=== PATIENT | male | born 1940 | race Two or more races ===

== ENCOUNTER → 2019-11-12 | Outpatient (CLI) | payer OTHER ==
[2019-11-12 09:36] LABS: Basophils # (auto) 0 10 ^3/uL (0-0.2); Basophils % (auto) 0.5 % (0.0-2.0); Eosinophils # (auto) 0.1 10 ^3/uL (0-0.8); Eosinophils % (auto) 1.1 % (0.0-7.0); Hematocrit 48.2 % (41.0-53.0); Lymphocytes # (auto) 1.3 10 ^3/uL (0.4-5.4); Lymphocytes % (auto) 14.1 % (10.0-50.0); Mean Corpuscular Hemoglobin 30.2 pg (28.0-32.0); Mean Corpuscular Hgb Conc. 33.2 g/dL (32.0-36.0); Mean Corpuscular Volume 90.9 fL (80.0-100.0); Monocytes # (auto) 0.5 10 ^3/uL (0-1.3); Monocytes % (auto) 5.7 % (0.0-12.0); Neutrophils % (auto) 78.6 % (37.0-80.0); Platelet Count (auto) 176 10^3/uL (140-450); Red Cell Distribution Width 14.4 % (11.8-14.3); White Blood Cell 8.9 10^3/uL (4.4-10.8)
[2019-11-12 09:41] LABS: Urine Bacteria NONE SEEN /hpf (None Seen); Urine Blood Negative /uL (Negative); Urine Specific Gravity 1.016 (1.001-1.035); Urine WBC 1 /hpf (0 - 3)
[2019-11-12 09:58] LABS: Albumin 3.6 g/dL (3.4-5.0)
[2019-11-12 10:03] LABS: BUN/Creatinine Ratio 16.9; Bilirubin, Total 0.5 mg/dL (0.2-1.0); CRP High Sensitivity 0.21 mg/dL (< 0.3); Total Protein 7.3 g/dL (6.4-8.2)
== END | disposition home or self-care (01) ==
LOC: LAB 09:13
PROVIDERS: ATTEND Internal Medicine
DX: Z12.5 Encounter for screening for malignant neoplasm of prostate (principal); E11.9 Type 2 diabetes mellitus without complications; I25.2 Old myocardial infarction; I10 Essential (primary) hypertension; M54.9 Dorsalgia, unspecified
CPT/HCPCS: 36415; 80053; 80061; 81001; 82043; 83036; 84153; 85025; 85652; 86141

== ENCOUNTER 2019-11-18 08:04 | Emergency (ER) | payer OTHER ==
[~2019-11-18] VITALS: Ht 167.6 cm; Wt 79.4 kg
[2019-11-18 08:23] VITALS: BP 139/88
[2019-11-18] MEDS ORDERED: IBUPROFEN 600 MG TAB PO ONE (10:00)
[2019-11-18] MEDS ORDERED: METHOCARBAMOL 500 MG TAB PO ONE (10:00)
== END 2019-11-18 11:04 | disposition home or self-care (01) ==
LOC: ER 08:04
DX: M54.16 Radiculopathy, lumbar region (principal); E11.9 Type 2 diabetes mellitus without complications; I10 Essential (primary) hypertension; Z90.89 Acquired absence of other organs
CPT/HCPCS: 72131

== ENCOUNTER 2019-12-30 10:16 | Emergency (ER) | payer OTHER ==
[~2019-12-30] VITALS: Ht 167.6 cm; Wt 81.6 kg
[2019-12-30 10:55] VITALS: BP 141/85
[2019-12-30] MEDS ORDERED: HYDROcodone-ACET 5/325MG TAB PO ONE (11:15)
[2020-02-05] MEDS ORDERED: INSDRIP SC (10:52)
[2020-02-05] MEDS ORDERED: HYDR-531 PO (10:52)
[2020-02-05] MEDS ORDERED: INSU1INJ19 SC (10:52)
[2020-02-05] MEDS ORDERED: ATOR10TA52 PO (10:52)
[2020-02-05] MEDS ORDERED: TIZA4CAP PO (10:52)
[2020-02-05] MEDS ORDERED: GABA300C10 PO (10:52)
[2020-02-05] MEDS ORDERED: METF-372 PO (10:52)
[2020-02-05] MEDS ORDERED: LOSA-69 PO (10:52)
== END 2019-12-30 11:35 | disposition home or self-care (01) ==
LOC: ER 10:16
DX: M54.16 Radiculopathy, lumbar region (principal); E11.9 Type 2 diabetes mellitus without complications; I10 Essential (primary) hypertension

== ENCOUNTER → 2020-01-01 | Outpatient (CLI) | payer OTHER ==
[2020-01-01 16:30] LABS: Amphetamine Screen, Urine NEGATIVE (NEGATIVE); Barbiturate Scree,Urine NEGATIVE (NEGATIVE); Benzodiazephine Screen, Urine NEGATIVE (NEGATIVE); Cannabinoid Screen, Urine NEGATIVE (NEGATIVE); Cocaine Screen, Urine NEGATIVE (NEGATIVE); Opiate Scree,Urine POSITIVE (NEGATIVE); Phencyclidine Screen, Urine NEGATIVE (NEGATIVE)
== END | disposition home or self-care (01) ==
LOC: LAB 15:52
PROVIDERS: ATTEND Psychiatry & Neurology Neurology
DX: M54.2 Cervicalgia (principal)
CPT/HCPCS: 80307

== ENCOUNTER 2020-02-07 09:07 | Day surgery (SDC) | payer OTHER ==
[2020-02-05 09:52] LABS: Basophils # (auto) 0 10 ^3/uL (0-0.2); Basophils % (auto) 0.7 % (0.0-2.0); Eosinophils # (auto) 0.2 10 ^3/uL (0-0.8); Eosinophils % (auto) 2.4 % (0.0-7.0); Hemoglobin 14.4 g/dL (13.5-17.5); Lymphocytes # (auto) 1.7 10 ^3/uL (0.4-5.4); Lymphocytes % (auto) 24.6 % (10.0-50.0); Mean Corpuscular Hemoglobin 30.1 pg (28.0-32.0); Mean Corpuscular Hgb Conc. 33.4 g/dL (32.0-36.0); Monocytes # (auto) 0.6 10 ^3/uL (0-1.3); Monocytes % (auto) 8.1 % (0.0-12.0); Neutrophils # (auto) 4.5 10 ^3/uL (1.6-8.6); Neutrophils % (auto) 64.2 % (37.0-80.0); Nucleated Red Blood Cells % 0.1 %; Platelet Count (auto) 206 10^3/uL (140-450); Red Blood Cells 4.78 10^6/uL (4.5-5.90); Red Cell Distribution Width 14.6 % (11.8-14.3)
[2020-02-05 10:31] LABS: INR 0.96 (0.9-1.15); Partial Thromboplastin Time 25.6 sec (23.64-32.05)
[~2020-02-07] VITALS: Ht 167.6 cm; Wt 78.0 kg
[~2020-02-07 09:07] MED LIST: ATOR10TA52 PO; GABA300C10 PO; HYDR-531 PO; INSDRIP SC; INSU1INJ19 SC; LOSA-69 PO; METF-372 PO; TIZA4CAP PO
[2020-02-07] MEDS ORDERED: SODIUM CHLORIDE LOCK 10 ML ONE (10:28)
[2020-02-07] MEDS: fentaNYL CITRATE 100 MCG/2 ML VL ONE ×2 (12:13→12:15)
[2020-02-07] MEDS: diphenhdrAMINE HCL 50 MG/1 ML VL ONE ×2 (12:13→12:15)
[2020-02-07] MEDS: MIDAZOLAM HCL 5 MG/ML-1ML VIAL ONE ×3 (12:13→12:19)
[2020-02-07] MEDS ORDERED: fentaNYL CITRATE 100 MCG/2 ML VL ONE (12:20)
== END 2020-02-07 13:28 | disposition home or self-care (01) ==
LOC: GI 09:07
PROVIDERS: ATTEND Internal Medicine Gastroenterology
DX: R63.4 Abnormal weight loss (principal); D12.0 Benign neoplasm of cecum; K57.30 Diverticulosis of large intestine without perforation or abscess without bleeding; K63.89 Other specified diseases of intestine; K64.8 Other hemorrhoids; Z98.890 Other specified postprocedural states; Z79.899 Other long term (current) drug therapy; Z11.59 Encounter for screening for other viral diseases
CPT/HCPCS: 36415; 45385; 82962; 85025; 85610; 85730; 88305; J1200; J2250; J3010; J7030; U0003; 99152

== ENCOUNTER → 2020-02-12 | Outpatient (CLI) | payer OTHER ==
[2020-02-12 13:38] LABS: Basophils # (auto) 0 10 ^3/uL (0-0.2); Basophils % (auto) 0.6 % (0.0-2.0); Eosinophils # (auto) 0.1 10 ^3/uL (0-0.8); Eosinophils % (auto) 1.9 % (0.0-7.0); Hematocrit 41.7 % (41.0-53.0); Hemoglobin 13.8 g/dL (13.5-17.5); Lymphocytes # (auto) 1.8 10 ^3/uL (0.4-5.4); Lymphocytes % (auto) 23.5 % (10.0-50.0); Mean Corpuscular Hemoglobin 29.8 pg (28.0-32.0); Mean Corpuscular Hgb Conc. 33.2 g/dL (32.0-36.0); Mean Corpuscular Volume 89.7 fL (80.0-100.0); Monocytes # (auto) 0.4 10 ^3/uL (0-1.3); Monocytes % (auto) 5.9 % (0.0-12.0); Neutrophils # (auto) 5.2 10 ^3/uL (1.6-8.6); Neutrophils % (auto) 68.1 % (37.0-80.0); Nucleated Red Blood Cells % 0.1 %; Platelet Count (auto) 251 10^3/uL (140-450); Red Blood Cells 4.65 10^6/uL (4.5-5.90); Red Cell Distribution Width 14.5 % (11.8-14.3); White Blood Cell 7.6 10^3/uL (4.4-10.8)
[2020-02-12 13:51] LABS: INR 1.01 (0.9-1.15); Partial Thromboplastin Time 25.7 sec (23.64-32.05)
[2020-02-12 13:56] LABS: Albumin 3.4 g/dL (3.4-5.0); Calcium 8.7 mg/dL (8.5-10.1); Potassium 4.5 mmol/L (3.5-5.1)
[2020-02-12 14:01] LABS: Bilirubin, Total 0.4 mg/dL (0.2-1.0)
== END | disposition home or self-care (01) ==
LOC: LAB 13:13
DX: M47.816 Spondylosis without myelopathy or radiculopathy, lumbar region (principal); M51.26 Other intervertebral disc displacement, lumbar region; M43.16 Spondylolisthesis, lumbar region; M54.16 Radiculopathy, lumbar region; K64.8 Other hemorrhoids; I25.2 Old myocardial infarction; I10 Essential (primary) hypertension; Z01.818 Encounter for other preprocedural examination
CPT/HCPCS: 36415; 80053; 85025; 85610; 85730

== ENCOUNTER → 2020-07-15 | Outpatient (CLI) | payer OTHER ==
[2020-07-15 11:20] LABS: Albumin 3.5 g/dL (3.4-5.0); Calcium 8.9 mg/dL (8.5-10.1); Potassium 4.6 mmol/L (3.5-5.1)
[2020-07-15 11:26] LABS: BUN/Creatinine Ratio 22.1; Bilirubin, Total 0.4 mg/dL (0.2-1.0); Total Protein 6.8 g/dL (6.4-8.2)
== END | disposition home or self-care (01) ==
LOC: LAB 10:17
PROVIDERS: ATTEND Internal Medicine
DX: E11.9 Type 2 diabetes mellitus without complications (principal)
CPT/HCPCS: 36415; 80053; 83036

== ENCOUNTER → 2020-11-03 | Outpatient (CLI) | payer OTHER | END | disposition home or self-care (01) | LOC: XY 11:10 | PROVIDERS: ATTEND Internal Medicine | DX: I73.9 Peripheral vascular disease, unspecified (principal) | CPT/HCPCS: 93925 ==

== ENCOUNTER 2020-12-20 15:59 | Emergency (ER) | payer OTHER ==
[~2020-12-20] VITALS: Ht 167.6 cm; Wt 81.2 kg
[2020-12-20 16:20] VITALS: BP 117/93
== END 2020-12-20 19:00 | disposition left against medical advice (07) ==
LOC: ER 15:59
DX: K08.89 Other specified disorders of teeth and supporting structures (principal); Z53.21 Procedure and treatment not carried out due to patient leaving prior to being seen by health care provider

== ENCOUNTER 2020-12-25 02:50 | Inpatient (IN) | payer OTHER ==
[2020-12-25] VITALS (8 sets, daily range): BP systolic 129–158; BP diastolic 82–86
[~2020-12-25] VITALS: Ht 167.6 cm; Wt 86.0 kg
[2020-12-25 03:38] LABS: Basophils # (auto) 0.1 10 ^3/uL (0-0.2); Basophils % (auto) 1.4 % (0.0-2.0); Eosinophils # (auto) 0.2 10 ^3/uL (0-0.8); Eosinophils % (auto) 1.9 % (0.0-7.0); Hemoglobin 16.6 g/dL (13.5-17.5); Lymphocytes # (auto) 2.7 10 ^3/uL (0.4-5.4); Lymphocytes % (auto) 29.7 % (10.0-50.0); Mean Corpuscular Hemoglobin 30.8 pg (28.0-32.0); Mean Corpuscular Hgb Conc. 33.8 g/dL (32.0-36.0); Mean Corpuscular Volume 91.1 fL (80.0-100.0); Monocytes # (auto) 0.5 10 ^3/uL (0-1.3); Monocytes % (auto) 5.4 % (0.0-12.0); Neutrophils # (auto) 5.7 10 ^3/uL (1.6-8.6); Neutrophils % (auto) 61.6 % (37.0-80.0); Nucleated Red Blood Cells % 0.2 %; Platelet Count (auto) 183 10^3/uL (140-450); Red Blood Cells 5.38 10^6/uL (4.5-5.90); Red Cell Distribution Width 14.4 % (11.8-14.3); White Blood Cell 9.2 10^3/uL (4.4-10.8)
[2020-12-25 03:48] LABS: Albumin 3.6 g/dL (3.4-5.0); Calcium 8.7 mg/dL (8.5-10.1); Magnesium 2.1 mg/dL (1.6-2.6); Potassium 4.3 mmol/L (3.5-5.1)
[2020-12-25 03:52] LABS: BUN/Creatinine Ratio 14.7; Bilirubin, Total 0.4 mg/dL (0.2-1.0)
[2020-12-25] MEDS ORDERED: ASPirin 325 MG TAB PO ONE (04:15)
[2020-12-25] MEDS ORDERED: ENOXAPARIN SOD 100 MG/1 ML SYRINGE SC ONE (04:15)
[2020-12-25 04:31] LABS: INR 0.98 (0.9-1.15)
[2020-12-25] MEDS ORDERED: ENOXAPARIN SOD 80 MG/0.8ML SYRINGE SC ONE (04:45)
[2020-12-25 05:47] LABS: Urine Bacteria FEW /hpf (None Seen); Urine Blood Negative /uL (Negative); Urine Hyaline Cast FEW /lpf (0 - 2); Urine Specific Gravity 1.013 (1.001-1.035); Urine WBC 40 /hpf (0 - 3)
[2020-12-25] MEDS ORDERED: MORPHINE SULF INJ 2 MG/ML SYRINGE 1ML IV PRN ×2 (07:00)
[2020-12-25] MEDS ORDERED: hydrALAZINE HCL 20 MG/ML VL IV PRN (07:00)
[2020-12-25] MEDS ORDERED: DOCUSATE SOD 100 MG CAP PO PRN (07:00)
[2020-12-25] MEDS ORDERED: ONDANSETRON HCL 4 MG/2 ML VIAL IV PRN (07:00)
[2020-12-25] MEDS ORDERED: HYDROcodone-ACET 5/325MG TAB PO PRN (07:00)
[2020-12-25] MEDS ORDERED: DEXTROSE (50%) 50ML SYRG IV PRN (07:00)
[2020-12-25] MEDS: ACCU-CHEK COMFORT CURVE STRIP VI SCH ×4 (07:00→21:32)
[2020-12-25] MEDS ORDERED: ACETAMINOPHEN 325 MG TAB PO PRN (07:00)
[2020-12-25] MEDS ORDERED: NITROGLYCERIN 0.4 MG SL TAB SL PRN (07:00)
[2020-12-25] MEDS: InsuLIN REG 1unit/0.01ml Soln (100units/ml) SC SCH ×3 (08:43→17:20)
[2020-12-25 09:17] LABS: Albumin 3.3 g/dL (3.4-5.0); Calcium 8.6 mg/dL (8.5-10.1); Potassium 4.2 mmol/L (3.5-5.1)
[2020-12-25 09:20] LABS: BUN/Creatinine Ratio 15.3; Bilirubin, Total 0.3 mg/dL (0.2-1.0); Total Protein 6.5 g/dL (6.4-8.2)
[2020-12-25 09:21] LABS: Cholesterol 213 mg/dL (< 200); HDL Cholesterol 56 mg/dL (40-59); LDL Cholesterol 139 mg/dL (< 100); Triglycerides 111 mg/dL (< 150)
[2020-12-25] MEDS: FAMOTIDINE 20 MG TAB PO SCH (10:00)
[2020-12-25] MEDS: MULTIPLE VITAMIN TAB PO SCH (10:00)
[2020-12-25] MEDS: ASCORBIC ACID 500 MG TAB PO SCH ×2 (10:00→21:01)
[2020-12-25] MEDS: ZINC SULFATE 220mg CAP or TAB PO SCH (10:00)
[2020-12-25] MEDS: HEPARIN SODIUM (PORCINE) 5000 UNITS/ML 1ML VIAL SC SCH ×2 (10:00→21:16)
[2020-12-25] MEDS ORDERED: ASPirin 81 mg TAB PO SCH (10:00)
[2020-12-25 10:37] LABS: INR 0.98 (0.9-1.15); Partial Thromboplastin Time 28.2 sec (23.0-31.2)
[2020-12-25] MEDS ORDERED: ASPI1CHW15 PO (13:29)
[2020-12-25] MEDS ORDERED: ATOR20TA50 PO (13:29)
[2020-12-25] MEDS ORDERED: HEPARIN SODIUM (PORCINE) 5000 UNITS/ML 1ML VIAL ONE (13:45)
[2020-12-25] MEDS ORDERED: ANGIOMAX 250 MG VIAL IV ONE (13:45)
[2020-12-25] MEDS ORDERED: fentaNYL CITRATE 100 MCG/2 ML VL ONE (13:45)
[2020-12-25] MEDS ORDERED: VERAPAMIL 2.5MG/ML INJ 2ML VIAL IV ONE (13:45)
[2020-12-25] MEDS ORDERED: MIDAZOLAM HCL 1MG/1ML-2 ML VIAL ONE (13:46)
[2020-12-25] MEDS ORDERED: SODIUM CHL 0.9% 50 ML ONE (13:46)
[2020-12-25] MEDS ORDERED: LIDOCAINE 2%HCL (LOCAL ANESTH.) INJ 20ML MDV ONE (13:46)
[2020-12-25] MEDS ORDERED: IOHEXOL 350 MG/ML 100ML IJ ONE ×2 (13:46→14:41)
[2020-12-25] MEDS: SODIUM CHLOR 0.9% PF (SALINE LOCK) 10ML VIAL/SYR IV SCH ×2 (14:00→21:01)
[2020-12-25] MEDS ORDERED: ASPirin 325 MG TAB ONE (15:04)
[2020-12-25] MEDS ORDERED: TICAGRELOR 90 MG TAB ONE (15:04)
[2020-12-25] MEDS: TICAGRELOR 90 MG TAB PO SCH (21:01)
[2020-12-25] MEDS ORDERED: InsuLIN REG 1unit/0.01ml Soln (100units/ml) SC SCH (22:00)
[2020-12-25] MEDS ORDERED: ATORVASTATIN 20 MG TAB PO SCH (22:00)
[2020-12-26 04:55] VITALS: BP 124/77
[2020-12-26] MEDS: SODIUM CHLOR 0.9% PF (SALINE LOCK) 10ML VIAL/SYR IV SCH ×2 (06:51→14:00)
[2020-12-26] MEDS: ACCU-CHEK COMFORT CURVE STRIP VI SCH ×2 (06:51→11:30)
[2020-12-26] MEDS: InsuLIN REG 1unit/0.01ml Soln (100units/ml) SC SCH ×2 (06:52→11:33)
[2020-12-26 08:09] LABS: Basophils # (auto) 0 10 ^3/uL (0-0.2); Basophils % (auto) 0.7 % (0.0-2.0); Eosinophils # (auto) 0.2 10 ^3/uL (0-0.8); Eosinophils % (auto) 2.4 % (0.0-7.0); Hematocrit 49.9 % (41.0-53.0); Hemoglobin 17.2 g/dL (13.5-17.5); Lymphocytes # (auto) 1.6 10 ^3/uL (0.4-5.4); Lymphocytes % (auto) 22.8 % (10.0-50.0); Mean Corpuscular Hemoglobin 31.3 pg (28.0-32.0); Mean Corpuscular Hgb Conc. 34.5 g/dL (32.0-36.0); Mean Corpuscular Volume 90.9 fL (80.0-100.0); Monocytes # (auto) 0.6 10 ^3/uL (0-1.3); Neutrophils # (auto) 4.7 10 ^3/uL (1.6-8.6); Neutrophils % (auto) 65.1 % (37.0-80.0); Nucleated Red Blood Cells % 0.2 %; Platelet Count (auto) 171 10^3/uL (140-450); Red Blood Cells 5.49 10^6/uL (4.5-5.90); Red Cell Distribution Width 14.6 % (11.8-14.3); White Blood Cell 7.1 10^3/uL (4.4-10.8)
[2020-12-26 08:37] LABS: Potassium 4.4 mmol/L (3.5-5.1)
[2020-12-26 08:55] VITALS: BP 127/77
[2020-12-26 09:03] LABS: Albumin 3.4 g/dL (3.4-5.0); BUN/Creatinine Ratio 19.3; Bilirubin, Total 0.6 mg/dL (0.2-1.0); Calcium 8.8 mg/dL (8.5-10.1); Total Protein 6.7 g/dL (6.4-8.2)
[2020-12-26] MEDS ORDERED: ASPirin 81 mg TAB PO SCH (10:00)
[2020-12-26] MEDS: TICAGRELOR 90 MG TAB PO SCH (10:13)
[2020-12-26] MEDS: ZINC SULFATE 220mg CAP or TAB PO SCH (10:13)
[2020-12-26] MEDS: ASCORBIC ACID 500 MG TAB PO SCH (10:13)
[2020-12-26] MEDS: FAMOTIDINE 20 MG TAB PO SCH (10:14)
[2020-12-26] MEDS: MULTIPLE VITAMIN TAB PO SCH (10:14)
[2020-12-26] MEDS: HEPARIN SODIUM (PORCINE) 5000 UNITS/ML 1ML VIAL SC SCH (10:15)
[2020-12-26 12:55] VITALS: BP 141/79
[2020-12-26] MEDS ORDERED: CARVEDILOL 3.125 MG TAB PO ONE (14:15)
[2020-12-26] MEDS ORDERED: CARVEDILOL 3.125 MG TAB PO SCH (22:00)
== END 2020-12-26 15:30 | disposition home or self-care (01) | DRG 249 ==
LOC: ER 02:50 → TELE 06:50 → TELE-WESTW 16:30
PROVIDERS: ADMIT Nurse Practitioner Family; ATTEND Internal Medicine Pulmonary Disease
PROC: 4A023N7 Measurement of Cardiac Sampling and Pressure, Left Heart, Percutaneous Approach (ICD-10-PCS; principal; 2020-12-25)
PROC: 02703DZ Dilation of Coronary Artery, One Artery with Intraluminal Device, Percutaneous Approach (ICD-10-PCS; 2020-12-25)
PROC: 4A033BC Measurement of Arterial Pressure, Coronary, Percutaneous Approach (ICD-10-PCS; 2020-12-25)
PROC: B2111ZZ Fluoroscopy of Multiple Coronary Arteries using Low Osmolar Contrast (ICD-10-PCS; 2020-12-25)
PROC: B2151ZZ Fluoroscopy of Left Heart using Low Osmolar Contrast (ICD-10-PCS; 2020-12-25)
DX: I24.9 Acute ischemic heart disease, unspecified (principal); E11.51 Type 2 diabetes mellitus with diabetic peripheral angiopathy without gangrene; E11.65 Type 2 diabetes mellitus with hyperglycemia; E66.3 Overweight; Z20.822 Contact with and (suspected) exposure to COVID-19; I10 Essential (primary) hypertension; F17.210 Nicotine dependence, cigarettes, uncomplicated; E78.5 Hyperlipidemia, unspecified; I25.2 Old myocardial infarction; Z79.4 Long term (current) use of insulin; Z79.82 Long term (current) use of aspirin; I25.110 Atherosclerotic heart disease of native coronary artery with unstable angina pectoris; Z68.29 Body mass index [BMI] 29.0-29.9, adult
CPT/HCPCS: 36415; 71045; 80053; 80061; 81001; 82043; 82306; 82962; 83036; 83735; 83880; 84484; 85025; 85610; 85730; 86850; 86900; 86901; 87426; 92928; 93005; 93306; 93458; 96372; 99152; 99153; C1887; G0378; J1815; J2250

== ENCOUNTER → 2021-02-17 | Outpatient (CLI) | payer OTHER ==
[~2021-02-17] MED LIST changes: +ASPI1CHW15 PO; -ATOR10TA52 PO; +ATOR20TA50 PO; -GABA300C10 PO; -HYDR-531 PO; -TIZA4CAP PO
== END | disposition home or self-care (01) ==
LOC: LAB 10:45
PROVIDERS: ATTEND Physician Assistant
DX: C44.622 Squamous cell carcinoma of skin of right upper limb, including shoulder (principal)

== ENCOUNTER → 2021-10-07 | Outpatient (CLI) | payer OTHER ==
[~2021-10-07] MED LIST changes: +BUPIVACAINE HCL 0.25% P/F 10 ML VIAL ONE; +IOHEXOL 300 MG/ML 100ML BOTTLE IJ ONE; +LIDOCAINE 2%HCL (LOCAL ANESTH.) INJ 20ML MDV ONE; +methylPREDNISolone ACETATE 80 MG/ML VL ONE
== END | disposition home or self-care (01) ==
LOC: XY 12:34
PROVIDERS: ATTEND Orthopaedic Surgery Adult Reconstructive Orthopaedic Surgery
DX: M25.552 Pain in left hip (principal); F17.200 Nicotine dependence, unspecified, uncomplicated; Z82.0 Family history of epilepsy and other diseases of the nervous system
CPT/HCPCS: 20610; 73502; J1040; J3490; Q9967; 76000

== ENCOUNTER 2021-12-26 11:21 | Emergency (ER) | payer OTHER ==
[~2021-12-26] VITALS: Ht 167.6 cm; Wt 73.5 kg
[~2021-12-26 11:21] MED LIST changes: -BUPIVACAINE HCL 0.25% P/F 10 ML VIAL ONE; -IOHEXOL 300 MG/ML 100ML BOTTLE IJ ONE; -LIDOCAINE 2%HCL (LOCAL ANESTH.) INJ 20ML MDV ONE; -methylPREDNISolone ACETATE 80 MG/ML VL ONE
[2021-12-26] MEDS ORDERED: ONDANSETRON ODT 4 MG TAB PO ONE (12:15)
[2021-12-26] MEDS ORDERED: ONDA-188 PO (13:45)
[2021-12-26 15:24] VITALS: BP 120/77
== END 2021-12-26 14:38 | disposition home or self-care (01) ==
LOC: ER 11:21
DX: R11.2 Nausea with vomiting, unspecified (principal); E11.9 Type 2 diabetes mellitus without complications; I10 Essential (primary) hypertension; I25.2 Old myocardial infarction; F17.210 Nicotine dependence, cigarettes, uncomplicated; Z90.89 Acquired absence of other organs; Z98.61 Coronary angioplasty status; Z79.4 Long term (current) use of insulin
CPT/HCPCS: 74176; 93005; 99284; Q0162

== ENCOUNTER → 2022-04-29 | Outpatient (CLI) | payer OTHER ==
[~2022-04-29] MED LIST changes: +ONDA-188 PO
== END | disposition home or self-care (01) ==
LOC: LAB 15:13
PROVIDERS: ATTEND Family Medicine
DX: L82.1 Other seborrheic keratosis (principal)
CPT/HCPCS: 88302

== ENCOUNTER → 2022-06-30 | Outpatient (CLI) | payer OTHER ==
[2022-06-30 13:49] LABS: Basophils # (auto) 0.1 10 ^3/uL (0-0.2); Basophils % (auto) 0.8 % (0.0-2.0); Eosinophils # (auto) 0.1 10 ^3/uL (0-0.8); Hemoglobin 16.6 g/dL (13.5-17.5); Lymphocytes # (auto) 1.6 10 ^3/uL (0.4-5.4); Mean Corpuscular Hemoglobin 30.5 pg (28.0-32.0); Mean Corpuscular Hgb Conc. 33.2 g/dL (32.0-36.0); Monocytes # (auto) 0.4 10 ^3/uL (0-1.3); Monocytes % (auto) 6.1 % (0.0-12.0); Neutrophils # (auto) 4.5 10 ^3/uL (1.6-8.6); Neutrophils % (auto) 68.1 % (37.0-80.0); Nucleated Red Blood Cells % 0.2 %; Red Blood Cells 5.43 10^6/uL (4.5-5.90); Red Cell Distribution Width 14.1 % (11.8-14.3); White Blood Cell 6.6 10^3/uL (4.4-10.8)
[2022-06-30 13:55] LABS: Urine Bacteria NONE SEEN /hpf (None Seen); Urine Blood Negative /uL (Negative); Urine Specific Gravity 1.012 (1.001-1.035); Urine WBC 1 /hpf (0 - 3)
[2022-06-30 14:44] LABS: Albumin 3.8 g/dL (3.4-5.0); Potassium 4.6 mmol/L (3.5-5.1)
[2022-06-30 16:06] LABS: BUN/Creatinine Ratio 18.5; Calcium 8.7 mg/dL (8.5-10.1)
[2022-06-30 16:25] LABS: Bilirubin, Total 0.6 mg/dL (0.2-1.0)
== END | disposition home or self-care (01) ==
LOC: LAB 13:30
PROVIDERS: ATTEND Internal Medicine
DX: E11.9 Type 2 diabetes mellitus without complications (principal); J44.9 Chronic obstructive pulmonary disease, unspecified
CPT/HCPCS: 36415; 80053; 80061; 81001; 82043; 83036; 85025

== ENCOUNTER → 2022-08-11 | Outpatient (CLI) | payer OTHER ==
[2022-08-11 14:29] LABS: Basophils # (auto) 0.1 10 ^3/uL (0-0.2); Basophils % (auto) 0.6 % (0.0-2.0); Eosinophils # (auto) 0.1 10 ^3/uL (0-0.8); Eosinophils % (auto) 0.6 % (0.0-7.0); Hematocrit 49.7 % (41.0-53.0); Hemoglobin 16.7 g/dL (13.5-17.5); Lymphocytes # (auto) 2.2 10 ^3/uL (0.4-5.4); Lymphocytes % (auto) 25.2 % (10.0-50.0); Mean Corpuscular Hemoglobin 30.9 pg (28.0-32.0); Mean Corpuscular Hgb Conc. 33.6 g/dL (32.0-36.0); Monocytes # (auto) 0.5 10 ^3/uL (0-1.3); Monocytes % (auto) 5.7 % (0.0-12.0); Neutrophils # (auto) 5.9 10 ^3/uL (1.6-8.6); Neutrophils % (auto) 67.9 % (37.0-80.0); Nucleated Red Blood Cells % 0.1 %; Red Cell Distribution Width 14.1 % (11.8-14.3); White Blood Cell 8.8 10^3/uL (4.4-10.8)
== END | disposition home or self-care (01) ==
LOC: LAB 14:12
PROVIDERS: ATTEND Internal Medicine
DX: M54.9 Dorsalgia, unspecified (principal)
CPT/HCPCS: 36415; 85025; 85652

== ENCOUNTER 2022-08-18 09:08 | Emergency (ER) | payer OTHER ==
[~2022-08-18] VITALS: Ht 167.6 cm; Wt 78.4 kg
[2022-08-18 10:58] VITALS: BP 145/86
== END 2022-08-18 13:34 | disposition home or self-care (01) ==
LOC: ER 09:12
DX: M48.061 Spinal stenosis, lumbar region without neurogenic claudication (principal); M54.16 Radiculopathy, lumbar region; G89.29 Other chronic pain; M54.50 Low back pain, unspecified; I10 Essential (primary) hypertension; E11.9 Type 2 diabetes mellitus without complications; I25.2 Old myocardial infarction; F17.210 Nicotine dependence, cigarettes, uncomplicated; Z90.89 Acquired absence of other organs; Z79.4 Long term (current) use of insulin; Z79.82 Long term (current) use of aspirin; Z79.899 Other long term (current) drug therapy
CPT/HCPCS: 72100; 72148

== ENCOUNTER 2022-10-27 09:00 | Inpatient (IN) | payer OTHER ==
[2022-10-25 10:19] LABS: Urine WBC None Seen /hpf (0 - 3)
[2022-10-25 10:24] LABS: Basophils # (auto) 0 10 ^3/uL (0-0.2); Basophils % (auto) 0.4 % (0.0-2.0); Eosinophils # (auto) 0 10 ^3/uL (0-0.8); Eosinophils % (auto) 0.4 % (0.0-7.0); Hematocrit 41.9 % (41.0-53.0); Hemoglobin 14.2 g/dL (13.5-17.5); Lymphocytes # (auto) 1.2 10 ^3/uL (0.4-5.4); Lymphocytes % (auto) 13.2 % (10.0-50.0); Mean Corpuscular Hemoglobin 30.8 pg (28.0-32.0); Mean Corpuscular Volume 90.6 fL (80.0-100.0); Monocytes # (auto) 0.6 10 ^3/uL (0-1.3); Monocytes % (auto) 6.1 % (0.0-12.0); Neutrophils # (auto) 7.5 10 ^3/uL (1.6-8.6); Neutrophils % (auto) 79.9 % (37.0-80.0); Red Blood Cells 4.62 10^6/uL (4.5-5.90); Red Cell Distribution Width 15.2 % (11.8-14.3); White Blood Cell 9.4 10^3/uL (4.4-10.8)
[2022-10-25 10:39] LABS: Urine Bacteria NONE SEEN /hpf (None Seen); Urine Blood Negative /uL (Negative); Urine Hyaline Cast FEW /lpf (0 - 2); Urine Specific Gravity 1.016 (1.001-1.035)
[2022-10-25 10:40] LABS: INR 0.98 (0.9-1.15); Partial Thromboplastin Time 26.3 sec (24.6-33.4)
[2022-10-25 11:20] LABS: Potassium 4.4 mmol/L (3.5-5.1)
[2022-10-25 11:28] LABS: Albumin 3.7 g/dL (3.4-5.0); BUN/Creatinine Ratio 21.4; Bilirubin, Total 0.6 mg/dL (0.2-1.0); Calcium 8.9 mg/dL (8.5-10.1); Total Protein 7.5 g/dL (6.4-8.2)
[~2022-10-27] VITALS: Ht 167.6 cm; Wt 70.1 kg
[~2022-10-27 09:00] MED LIST changes: +CARI-277 PO; +CARV3.1240 PO; +CLOP75TA70 PO; +EMPA1TAB PO; +LOSA-39 PO; -LOSA-69 PO; +MELO1TAB73 PO; +OXYC325T14 PO; +PRED20TA2 PO
[2022-10-27] MEDS ORDERED: ceFAZolin 1GM/50ML 100 ML IV ONE (12:28)
[2022-10-27] MEDS ORDERED: fentaNYL CITRATE 100 MCG/2 ML VL ONE ×2 (14:30→14:31)
[2022-10-27] MEDS ORDERED: GLYCOPYRROLATE 0.2 MG/ML 1ML VIAL ONE (14:30)
[2022-10-27] MEDS ORDERED: ePHEDrine SULFATE 50 MG/ML AMP ONE (14:30)
[2022-10-27] MEDS ORDERED: HYDROmorphone HCL 2 MG/ML VL/or syr ONE (14:30)
[2022-10-27] MEDS ORDERED: PROPOFOL 10 MG/ML 20 ML IV ONE (14:30)
[2022-10-27] MEDS ORDERED: MIDAZOLAM HCL 2MG/2ML 2ml VIAL (1mg/ml) ONE (14:30)
[2022-10-27] MEDS ORDERED: ONDANSETRON HCL 4 MG/2 ML VIAL ONE (14:30)
[2022-10-27] MEDS ORDERED: ROCURONIUM 10MG/ML 10ML VIAL IV ONE (14:43)
[2022-10-27] MEDS ORDERED: HYDROCORTISONE SOD SUCC 100 MG/2ML INJ VIAL ONE (14:48)
[2022-10-27] MEDS ORDERED: MORPHINE SULFATE INJ 2 MG/ml SYRG IV PRN ×2 (15:45)
[2022-10-27] MEDS: D5W/SOD CHLO 0.9% 1,000 ML IV SCH (15:45)
[2022-10-27] MEDS ORDERED: DOCUSATE SOD 100 MG CAP PO PRN (15:45)
[2022-10-27] MEDS ORDERED: MILK OF MAGNESIA 30ML SUSP PO PRN (15:45)
[2022-10-27] MEDS ORDERED: DexAMETHasone SOD PHOS 10MG/1ML VIAL INJ IV ONE (15:45)
[2022-10-27] MEDS ORDERED: NITROGLYCERIN 0.4 MG SL TAB SL PRN (15:45)
[2022-10-27] MEDS: ceFAZolin 1GM/50ML 50 ML IV SCH ×2 (15:45→22:31)
[2022-10-27] MEDS ORDERED: SUGAMMADEX 200mg/2ml Vial (100MG/ML) IV ONE (17:04)
[2022-10-27] MEDS ORDERED: MINERAL OIL TOPICAL 10ml TOP ONE (18:02)
[2022-10-27] MEDS ORDERED: HYDROmorphone HCL 2 MG/ML VL/or syr IV PRN (19:15)
[2022-10-27] MEDS ORDERED: ONDANSETRON HCL 4 MG/2 ML VIAL IV PRN (19:15)
[2022-10-27 20:23] VITALS: BP 108/80
[2022-10-27 22:00] VITALS: BP 104/80
[2022-10-27] MEDS: HYDROcodone-ACET 10/325MG TAB PO PRN (22:32)
[2022-10-27] MEDS: DOCUSATE SOD 100 MG CAP PO SCH (22:32)
[2022-10-27] MEDS: CYCLOBENZAPRINE HCL 10 MG TAB PO SCH (22:32)
[2022-10-27 23:46] VITALS: BP 108/80
[2022-10-28] MEDS: D5W/SOD CHLO 0.9% 1,000 ML IV SCH ×2 (01:45→11:56)
[2022-10-28] MEDS: CYCLOBENZAPRINE HCL 10 MG TAB PO SCH ×3 (04:52→21:15)
[2022-10-28 05:00] VITALS: BP 144/80
[2022-10-28 08:49] VITALS: BP 83/59
[2022-10-28] MEDS: DOCUSATE SOD 100 MG CAP PO SCH ×2 (09:40→21:15)
[2022-10-28 13:00] VITALS: BP 115/73
[2022-10-28] MEDS ORDERED: DEXTROSE (50%) 50ML SYRG IV PRN (15:15)
[2022-10-28 17:00] VITALS: BP 114/65
[2022-10-28] MEDS: ACCU-CHEK COMFORT CURVE STRIP VI SCH ×2 (17:31→21:16)
[2022-10-28] MEDS: SODIUM CHLORIDE 0.9% 1,000 ML IV SCH (17:31)
[2022-10-28] MEDS: InsuLIN REG 1unit/0.01ml Soln (100units/ml) SC SCH ×2 (17:32→21:26)
[2022-10-28] MEDS: ATORVASTATIN 20 MG TAB PO SCH (21:15)
[2022-10-28 22:00] VITALS: BP 141/78
[2022-10-29] MEDS: HYDROcodone-ACET 10/325MG TAB PO PRN ×2 (01:31→17:13)
[2022-10-29 05:00] VITALS: BP 109/61
[2022-10-29] MEDS: CYCLOBENZAPRINE HCL 10 MG TAB PO SCH ×3 (05:35→21:18)
[2022-10-29] MEDS: SODIUM CHLORIDE 0.9% 1,000 ML IV SCH ×2 (05:36→17:34)
[2022-10-29] MEDS: InsuLIN REG 1unit/0.01ml Soln (100units/ml) SC SCH ×3 (05:41→17:13)
[2022-10-29] MEDS: ACCU-CHEK COMFORT CURVE STRIP VI SCH ×4 (05:41→21:23)
[2022-10-29 07:06] LABS: BUN/Creatinine Ratio 31.1; Calcium 8.3 mg/dL (8.5-10.1)
[2022-10-29 08:05] LABS: Basophils # (auto) 0 10 ^3/uL (0-0.2); Basophils % (auto) 0.6 % (0.0-2.0); Eosinophils # (auto) 0 10 ^3/uL (0-0.8); Eosinophils % (auto) 0.2 % (0.0-7.0); Hematocrit 29.1 % (41.0-53.0); Hemoglobin 9.9 g/dL (13.5-17.5); Lymphocytes # (auto) 2.3 10 ^3/uL (0.4-5.4); Lymphocytes % (auto) 27.2 % (10.0-50.0); Mean Corpuscular Hgb Conc. 34.1 g/dL (32.0-36.0); Mean Corpuscular Volume 90.7 fL (80.0-100.0); Monocytes # (auto) 0.6 10 ^3/uL (0-1.3); Monocytes % (auto) 7.6 % (0.0-12.0); Neutrophils # (auto) 5.4 10 ^3/uL (1.6-8.6); Neutrophils % (auto) 64.4 % (37.0-80.0); Nucleated Red Blood Cells % 0.1 %; Red Blood Cells 3.21 10^6/uL (4.5-5.90); Red Cell Distribution Width 14.7 % (11.8-14.3); White Blood Cell 8.4 10^3/uL (4.4-10.8)
[2022-10-29 08:30] VITALS: BP 115/59
[2022-10-29] MEDS: DOCUSATE SOD 100 MG CAP PO SCH ×2 (08:40→21:19)
[2022-10-29 12:30] VITALS: BP 150/82
[2022-10-29 16:45] VITALS: BP 151/89
[2022-10-29] MEDS: ATORVASTATIN 20 MG TAB PO SCH (21:18)
[2022-10-29 22:05] VITALS: BP 134/80
[2022-10-30] MEDS: InsuLIN REG 1unit/0.01ml Soln (100units/ml) SC SCH ×5 (00:01→22:34)
[2022-10-30] MEDS: SODIUM CHLORIDE 0.9% 1,000 ML IV SCH ×2 (01:27→20:35)
[2022-10-30 05:00] VITALS: BP 148/93
[2022-10-30] MEDS: CYCLOBENZAPRINE HCL 10 MG TAB PO SCH ×3 (05:24→22:16)
[2022-10-30] MEDS: ACCU-CHEK COMFORT CURVE STRIP VI SCH ×4 (05:37→22:17)
[2022-10-30 08:00] VITALS: BP 136/83
[2022-10-30 09:00] VITALS: BP 136/83
[2022-10-30] MEDS: HYDROcodone-ACET 10/325MG TAB PO PRN (11:06)
[2022-10-30] MEDS: DOCUSATE SOD 100 MG CAP PO SCH ×2 (11:06→22:16)
[2022-10-30 22:00] VITALS: BP 129/71
[2022-10-30] MEDS: ATORVASTATIN 20 MG TAB PO SCH (22:16)
[2022-10-31 05:15] VITALS: BP 139/71
[2022-10-31] MEDS: CYCLOBENZAPRINE HCL 10 MG TAB PO SCH ×3 (05:59→21:58)
[2022-10-31] MEDS: HYDROcodone-ACET 10/325MG TAB PO PRN ×2 (06:10→21:58)
[2022-10-31] MEDS: ACCU-CHEK COMFORT CURVE STRIP VI SCH ×4 (06:14→22:00)
[2022-10-31] MEDS: InsuLIN REG 1unit/0.01ml Soln (100units/ml) SC SCH ×4 (06:14→21:59)
[2022-10-31] MEDS: DOCUSATE SOD 100 MG CAP PO SCH ×2 (08:48→21:58)
[2022-10-31] MEDS: SODIUM CHLORIDE 0.9% 1,000 ML IV SCH (08:48)
[2022-10-31 09:00] VITALS: BP 98/55
[2022-10-31] MEDS ORDERED: LACTULOSE 20Gm/30ML SOLN PO ONE (11:45)
[2022-10-31] MEDS ORDERED: DOCUSATE SOD 100 MG CAP PO ONE (11:45)
[2022-10-31 13:00] VITALS: BP 127/71
[2022-10-31 16:39] VITALS: BP 95/68
[2022-10-31] MEDS: ATORVASTATIN 20 MG TAB PO SCH (21:58)
[2022-10-31 22:00] VITALS: BP 112/72
[2022-11-01 05:00] VITALS: BP 113/59
[2022-11-01] MEDS: ACCU-CHEK COMFORT CURVE STRIP VI SCH ×3 (06:24→17:30)
[2022-11-01] MEDS: InsuLIN REG 1unit/0.01ml Soln (100units/ml) SC SCH ×3 (06:24→17:00)
[2022-11-01] MEDS: CYCLOBENZAPRINE HCL 10 MG TAB PO SCH ×2 (06:24→15:18)
[2022-11-01 06:44] LABS: Basophils # (auto) 0 10 ^3/uL (0-0.2); Basophils % (auto) 0.5 % (0.0-2.0); Eosinophils # (auto) 0.2 10 ^3/uL (0-0.8); Eosinophils % (auto) 3.4 % (0.0-7.0); Hematocrit 31.3 % (41.0-53.0); Hemoglobin 10.9 g/dL (13.5-17.5); Lymphocytes # (auto) 2.5 10 ^3/uL (0.4-5.4); Lymphocytes % (auto) 35.6 % (10.0-50.0); Mean Corpuscular Hemoglobin 30.8 pg (28.0-32.0); Mean Corpuscular Hgb Conc. 34.9 g/dL (32.0-36.0); Mean Corpuscular Volume 88.3 fL (80.0-100.0); Monocytes # (auto) 0.6 10 ^3/uL (0-1.3); Neutrophils # (auto) 3.7 10 ^3/uL (1.6-8.6); Neutrophils % (auto) 52.5 % (37.0-80.0); Nucleated Red Blood Cells % 0.1 %; Red Blood Cells 3.55 10^6/uL (4.5-5.90); Red Cell Distribution Width 14.4 % (11.8-14.3)
[2022-11-01 08:00] VITALS: BP 101/56
[2022-11-01 09:00] VITALS: BP 101/56
[2022-11-01] MEDS: DOCUSATE SOD 100 MG CAP PO SCH (09:22)
[2022-11-01 13:00] VITALS: BP 105/69
[2022-11-01 15:28] VITALS: BP 105/69
[2022-11-01 16:50] VITALS: BP 101/67
== END 2022-11-01 17:40 | DRG 460 ==
LOC: SUR 09:00 → TELE 15:41 → TELE-WESTW 20:36 → WEST WING 11-01 01:01
PROVIDERS: ADMIT Orthopaedic Surgery; ATTEND Internal Medicine
PROC: 01NB0ZZ Release Lumbar Nerve, Open Approach (ICD-10-PCS; 2022-10-27)
PROC: 0QP004Z Removal of Internal Fixation Device from Lumbar Vertebra, Open Approach (ICD-10-PCS; 2022-10-27)
PROC: 00NY0ZZ Release Lumbar Spinal Cord, Open Approach (ICD-10-PCS; 2022-10-27)
PROC: 0SG1071 Fusion of 2 or more Lumbar Vertebral Joints with Autologous Tissue Substitute, Posterior Approach, Posterior Column, Open Approach (ICD-10-PCS; principal; 2022-10-27 15:37)
DX: M96.1 Postlaminectomy syndrome, not elsewhere classified (principal); E11.9 Type 2 diabetes mellitus without complications; E78.5 Hyperlipidemia, unspecified; Z20.822 Contact with and (suspected) exposure to COVID-19; I10 Essential (primary) hypertension; I25.10 Atherosclerotic heart disease of native coronary artery without angina pectoris; M48.00 Spinal stenosis, site unspecified; D64.9 Anemia, unspecified
CPT/HCPCS: 36415; 72110; 73030; 76000; 80048; 80053; 81001; 82962; 83036; 85025; 85610; 85730; 86850; 86900; 86901; 87426; 97110; 97116; 97163; 97530; G0378; J0690; J1815; J2250; J2405; J2704

== ENCOUNTER 2023-03-02 10:33 | Inpatient (IN) | payer OTHER ==
[~2023-03-02] VITALS: Ht 167.6 cm; Wt 72.0 kg
[~2023-03-02 10:33] MED LIST changes: +ASPI-736 PO; -ASPI1CHW15 PO; -LOSA-39 PO; +LOSA100T58 PO; -MELO1TAB73 PO; +MELO7.5T7 PO
[2023-03-02] MEDS ORDERED: ONDANSETRON HCL 4 MG/2 ML VIAL IV ONE (10:45)
[2023-03-02] MEDS ORDERED: MORPHINE SULFATE 4 MG/ML SYR/VIAL IV ONE (10:45)
[2023-03-02 10:54] LABS: Basophils # (auto) 0 10 ^3/uL (0-0.2); Basophils % (auto) 0.6 % (0.0-2.0); Eosinophils # (auto) 0.1 10 ^3/uL (0-0.8); Hematocrit 49.5 % (41.0-53.0); Hemoglobin 16.8 g/dL (13.5-17.5); Lymphocytes # (auto) 1.7 10 ^3/uL (0.4-5.4); Mean Corpuscular Hemoglobin 30.3 pg (28.0-32.0); Mean Corpuscular Hgb Conc. 33.8 g/dL (32.0-36.0); Mean Corpuscular Volume 89.5 fL (80.0-100.0); Monocytes # (auto) 0.5 10 ^3/uL (0-1.3); Monocytes % (auto) 6.4 % (0.0-12.0); Neutrophils # (auto) 5.9 10 ^3/uL (1.6-8.6); Red Blood Cells 5.53 10^6/uL (4.5-5.90); Red Cell Distribution Width 14.8 % (11.8-14.3); White Blood Cell 8.2 10^3/uL (4.4-10.8)
[2023-03-02 11:12] LABS: Albumin 3.7 g/dL (3.4-5.0); Magnesium 2.1 mg/dL (1.6-2.6); Potassium 4.7 mmol/L (3.5-5.1)
[2023-03-02 11:16] LABS: BUN/Creatinine Ratio 18.3 (10.0-20.0); Bilirubin, Total 0.4 mg/dL (0.2-1.0); Total Protein 6.7 g/dL (6.4-8.2)
[2023-03-02 11:19] LABS: INR 0.98 (0.9-1.15); Partial Thromboplastin Time 25.6 sec (24.6-33.4)
[2023-03-02 15:27] LABS: Urine Bacteria NONE SEEN /hpf (None Seen); Urine Blood Negative /uL (Negative); Urine Specific Gravity 1.011 (1.001-1.035); Urine WBC 1 /hpf (0 - 3)
[2023-03-02] MEDS ORDERED: ONDANSETRON HCL 4 MG/2 ML VIAL IV PRN (17:15)
[2023-03-02] MEDS ORDERED: ACETAMINOPHEN 325 MG TAB PO PRN (17:15)
[2023-03-02] MEDS ORDERED: NITROGLYCERIN 0.4 MG SL TAB SL PRN (17:15)
[2023-03-02] MEDS ORDERED: MORPHINE SULFATE 4 MG/ML SYR/VIAL IV PRN (17:15)
[2023-03-02 18:31] LABS: INR 0.99 (0.9-1.15)
[2023-03-02] MEDS ORDERED: guaiFENesin-CODEINE Liq 5 ML UD PO PRN (18:45)
[2023-03-02] MEDS: CARISOPRODOL 350 MG TAB PO SCH (22:00)
[2023-03-02] MEDS: MELOXICAM 7.5 MG PO SCH (22:00)
[2023-03-02] MEDS ORDERED: ATORVASTATIN 20 MG TAB PO SCH (22:00)
[2023-03-02] MEDS: CARVEDILOL 3.125 MG TAB PO SCH (22:58)
[2023-03-02] MEDS ORDERED: DEXTROSE (50%) 50ML SYRG IV PRN (23:00)
[2023-03-03] MEDS ORDERED: InsuLIN REG 1unit/0.01ml Soln (100units/ml) SC ONE (00:45)
[2023-03-03 02:55] VITALS: BP 134/84
[2023-03-03 05:00] VITALS: BP 109/70
[2023-03-03] MEDS: CARISOPRODOL 350 MG TAB PO SCH ×2 (06:00→14:00)
[2023-03-03 06:22] LABS: Basophils # (auto) 0 10 ^3/uL (0-0.2); Basophils % (auto) 0.6 % (0.0-2.0); Eosinophils # (auto) 0.2 10 ^3/uL (0-0.8); Eosinophils % (auto) 1.9 % (0.0-7.0); Hematocrit 47.7 % (41.0-53.0); Hemoglobin 16.3 g/dL (13.5-17.5); Lymphocytes # (auto) 2.2 10 ^3/uL (0.4-5.4); Lymphocytes % (auto) 26.6 % (10.0-50.0); Mean Corpuscular Hemoglobin 30.4 pg (28.0-32.0); Mean Corpuscular Hgb Conc. 34.2 g/dL (32.0-36.0); Mean Corpuscular Volume 88.9 fL (80.0-100.0); Monocytes # (auto) 0.7 10 ^3/uL (0-1.3); Monocytes % (auto) 8.1 % (0.0-12.0); Neutrophils # (auto) 5.2 10 ^3/uL (1.6-8.6); Neutrophils % (auto) 62.8 % (37.0-80.0); Nucleated Red Blood Cells % 0.1 %; Red Blood Cells 5.36 10^6/uL (4.5-5.90); Red Cell Distribution Width 14.7 % (11.8-14.3); White Blood Cell 8.3 10^3/uL (4.4-10.8)
[2023-03-03] MEDS: ACCU-CHEK COMFORT CURVE STRIP VI SCH ×2 (06:33→12:48)
[2023-03-03 06:34] LABS: Albumin 3.3 g/dL (3.4-5.0); Calcium 8.9 mg/dL (8.5-10.1); Potassium 4.8 mmol/L (3.5-5.1)
[2023-03-03 06:37] LABS: BUN/Creatinine Ratio 18.2 (10.0-20.0); Bilirubin, Total 0.4 mg/dL (0.2-1.0); Total Protein 6.5 g/dL (6.4-8.2)
[2023-03-03] MEDS: InsuLIN REG 1unit/0.01ml Soln (100units/ml) SC SCH ×2 (06:40→13:00)
[2023-03-03 09:00] VITALS: BP 130/67
[2023-03-03] MEDS ORDERED: LOSARTAN POTASSIUM 50 MG TAB PO SCH (10:00)
[2023-03-03] MEDS ORDERED: ASPirin 81 mg TAB PO SCH (10:00)
[2023-03-03] MEDS: MELOXICAM 7.5 MG PO SCH (10:00)
[2023-03-03] MEDS ORDERED: CLOPIDOGREL BISULFATE 75 MG TAB PO SCH (10:00)
[2023-03-03] MEDS ORDERED: DOCUSATE SOD 100 MG CAP PO SCH (10:00)
[2023-03-03] MEDS ORDERED: IOHEXOL 350 MG/ML 100ML IJ ONE (11:38)
[2023-03-03] MEDS: CARVEDILOL 3.125 MG TAB PO SCH (12:23)
[2023-03-03 14:41] VITALS: BP 130/67
[2023-03-03] MEDS ORDERED: InsuLIN REG 1unit/0.01ml Soln (100units/ml) SC SCH (22:00)
== END 2023-03-03 15:30 | disposition home or self-care (01) | DRG 282 ==
LOC: ER 10:33 → TELE 17:14 → TELE-WESTW 23:30
PROVIDERS: ADMIT Nurse Practitioner Family; ATTEND Internal Medicine
DX: I21.4 Non-ST elevation (NSTEMI) myocardial infarction (principal); E78.5 Hyperlipidemia, unspecified; I10 Essential (primary) hypertension; F17.210 Nicotine dependence, cigarettes, uncomplicated; E11.9 Type 2 diabetes mellitus without complications
CPT/HCPCS: 36415; 71046; 71275; 80053; 81001; 82962; 83036; 83735; 83880; 84100; 84484; 85025; 85379; 85610; 85730; 93005; 93306; 93970; G0378; J1815

== ENCOUNTER → 2023-04-10 | Outpatient (CLI) | payer OTHER ==
[2023-04-10 15:45] LABS: Basophils # (auto) 0.1 10 ^3/uL (0-0.2); Basophils % (auto) 1.2 % (0.0-2.0); Eosinophils # (auto) 0.1 10 ^3/uL (0-0.8); Eosinophils % (auto) 0.7 % (0.0-7.0); Hematocrit 43.8 % (41.0-53.0); Hemoglobin 14.6 g/dL (13.5-17.5); Lymphocytes # (auto) 2.1 10 ^3/uL (0.4-5.4); Lymphocytes % (auto) 18.1 % (10.0-50.0); Mean Corpuscular Hemoglobin 28.7 pg (28.0-32.0); Mean Corpuscular Hgb Conc. 33.4 g/dL (32.0-36.0); Monocytes # (auto) 0.7 10 ^3/uL (0-1.3); Monocytes % (auto) 5.9 % (0.0-12.0); Neutrophils # (auto) 8.4 10 ^3/uL (1.6-8.6); Neutrophils % (auto) 74.1 % (37.0-80.0); Nucleated Red Blood Cells % 0.1 %; Red Blood Cells 5.09 10^6/uL (4.5-5.90); Red Cell Distribution Width 14.9 % (11.8-14.3); Urine Bacteria NONE SEEN /hpf (None Seen); Urine Blood Negative /uL (Negative); Urine Hyaline Cast FEW /lpf (0 - 2); Urine Specific Gravity 1.014 (1.001-1.035); Urine WBC 1 /hpf (0 - 3); White Blood Cell 11.4 10^3/uL (4.4-10.8)
[2023-04-10 16:26] LABS: Potassium 4.3 mmol/L (3.5-5.1)
[2023-04-10 16:38] LABS: Albumin 3.1 g/dL (3.4-5.0); Bilirubin, Total 0.5 mg/dL (0.2-1.0); CRP High Sensitivity 7.3 mg/dL (< 0.3); Calcium 9.4 mg/dL (8.5-10.1); Total Protein 7.6 g/dL (6.4-8.2)
== END | disposition home or self-care (01) ==
LOC: LAB 15:23
PROVIDERS: ATTEND Internal Medicine
DX: E11.51 Type 2 diabetes mellitus with diabetic peripheral angiopathy without gangrene (principal); E11.9 Type 2 diabetes mellitus without complications; I10 Essential (primary) hypertension; E78.5 Hyperlipidemia, unspecified
CPT/HCPCS: 36415; 80053; 80061; 81001; 83036; 84443; 85025; 85652; 86141

== ENCOUNTER → 2023-05-29 | Outpatient (CLI) | payer OTHER ==
[2023-05-29 15:21] LABS: Basophils # (auto) 0.1 10 ^3/uL (0-0.2); Basophils % (auto) 1.1 % (0.0-2.0); Eosinophils # (auto) 0.2 10 ^3/uL (0-0.8); Hematocrit 45.7 % (41.0-53.0); Hemoglobin 15.4 g/dL (13.5-17.5); Lymphocytes % (auto) 25.1 % (10.0-50.0); Mean Corpuscular Hemoglobin 29.7 pg (28.0-32.0); Mean Corpuscular Hgb Conc. 33.7 g/dL (32.0-36.0); Monocytes # (auto) 0.6 10 ^3/uL (0-1.3); Monocytes % (auto) 7.3 % (0.0-12.0); Neutrophils # (auto) 5.1 10 ^3/uL (1.6-8.6); Neutrophils % (auto) 64.5 % (37.0-80.0); Nucleated Red Blood Cells % 0.1 %; Red Blood Cells 5.19 10^6/uL (4.5-5.90); White Blood Cell 7.9 10^3/uL (4.4-10.8)
[2023-05-29 15:54] LABS: INR 0.98 (0.9-1.15); Partial Thromboplastin Time 24.6 SEC (24.5-34.5); Prothrombin Time 10.3 sec (9.3-11.8)
== END | disposition home or self-care (01) ==
LOC: LAB 15:00
PROVIDERS: ATTEND Internal Medicine
DX: R91.8 Other nonspecific abnormal finding of lung field (principal); E11.8 Type 2 diabetes mellitus with unspecified complications
CPT/HCPCS: 36415; 85025; 85610; 85730

== ENCOUNTER 2023-06-04 16:40 | Emergency (ER) | payer OTHER ==
[~2023-06-04] VITALS: Ht 167.6 cm; Wt 76.2 kg
[2023-06-04] MEDS ORDERED: ONDANSETRON ODT 4 MG TAB PO ONE (18:30)
[2023-06-04] MEDS ORDERED: HYDROcodone-ACET 5/325MG TAB PO ONE (18:30)
[2023-06-04 18:38] VITALS: BP 126/80; PULSE 105; RESP 20; TEMP 98.5; O2SAT 95
[2023-06-04] MEDS ORDERED: ACET500T58 PO (18:40)
[2023-06-04] MEDS ORDERED: CEPH500C PO ×3 (18:40→21:56)
[2023-06-04] MEDS ORDERED: ceFAZolin 1GM/50ML 50 ML IV ONE ×2 (20:15)
[2023-06-04] MEDS ORDERED: BACITRACIN TOP OINT 1 UD PKG TOP ONE (21:45)
== END 2023-06-04 21:52 | disposition home or self-care (01) ==
LOC: ER 16:40
DX: S62.521A Displaced fracture of distal phalanx of right thumb, initial encounter for closed fracture (principal); I10 Essential (primary) hypertension; E11.9 Type 2 diabetes mellitus without complications; I25.2 Old myocardial infarction; E78.5 Hyperlipidemia, unspecified; F17.210 Nicotine dependence, cigarettes, uncomplicated; Z90.89 Acquired absence of other organs; Z98.890 Other specified postprocedural states; Z79.1 Long term (current) use of non-steroidal anti-inflammatories (NSAID); Z79.84 Long term (current) use of oral hypoglycemic drugs; Z79.4 Long term (current) use of insulin; Z79.899 Other long term (current) drug therapy; W27.0XXA Contact with workbench tool, initial encounter; Y93.89 Activity, other specified; Y92.89 Other specified places as the place of occurrence of the external cause; Y99.8 Other external cause status
CPT/HCPCS: 12002; 73140; 96365; 99284; J0690; Q0162

== ENCOUNTER → 2023-08-10 | Outpatient (CLI) | payer OTHER ==
[~2023-08-10] MED LIST changes: +ACET500T58 PO; +CEPH500C PO
== END | disposition home or self-care (01) ==
LOC: XYW 12:35
PROVIDERS: ATTEND Student in an Organized Health Care Education/Training Program
DX: I51.89 Other ill-defined heart diseases (principal); I50.32 Chronic diastolic (congestive) heart failure
CPT/HCPCS: 93306

== ENCOUNTER → 2023-08-15 | Outpatient (CLI) | payer OTHER ==
[~2023-08-15] VITALS: Ht 167.6 cm; Wt 73.9 kg
[~2023-08-15] MED LIST changes: +ADENOSINE 62 MG in GIVE UN-DILUTED 0 ML IV STA
== END | disposition home or self-care (01) ==
LOC: XYW 07:31
PROVIDERS: ATTEND Internal Medicine
DX: Z01.810 Encounter for preprocedural cardiovascular examination (principal); I25.9 Chronic ischemic heart disease, unspecified; I13.0 Hypertensive heart and chronic kidney disease with heart failure and stage 1 through stage 4 chronic kidney disease, or unspecified chronic kidney disease; E11.22 Type 2 diabetes mellitus with diabetic chronic kidney disease; I50.32 Chronic diastolic (congestive) heart failure; N18.2 Chronic kidney disease, stage 2 (mild); J84.10 Pulmonary fibrosis, unspecified; E11.21 Type 2 diabetes mellitus with diabetic nephropathy; E78.5 Hyperlipidemia, unspecified; G89.29 Other chronic pain; M77.8 Other enthesopathies, not elsewhere classified; Z79.4 Long term (current) use of insulin
CPT/HCPCS: 78452; 93017; A9500; J0153

== ENCOUNTER → 2023-08-15 | Outpatient (CLI) | payer OTHER ==
[~2023-08-15] MED LIST changes: -ADENOSINE 62 MG in GIVE UN-DILUTED 0 ML IV STA
[2023-08-15 13:46] LABS: Basophils # (auto) 0.1 10 ^3/uL (0-0.2); Basophils % (auto) 0.8 % (0.0-2.0); Eosinophils # (auto) 0.1 10 ^3/uL (0-0.8); Eosinophils % (auto) 1.8 % (0.0-7.0); Hematocrit 50.8 % (41.0-53.0); Lymphocytes # (auto) 1.9 10 ^3/uL (0.4-5.4); Lymphocytes % (auto) 27.9 % (10.0-50.0); Mean Corpuscular Hgb Conc. 33.5 g/dL (32.0-36.0); Mean Corpuscular Volume 89.4 fL (80.0-100.0); Monocytes # (auto) 0.5 10 ^3/uL (0-1.3); Monocytes % (auto) 7.5 % (0.0-12.0); Neutrophils # (auto) 4.3 10 ^3/uL (1.6-8.6); Nucleated Red Blood Cells % 0.1 %; Red Blood Cells 5.69 10^6/uL (4.5-5.90); Red Cell Distribution Width 14.6 % (11.8-14.3)
[2023-08-15 14:08] LABS: Alanine Aminotransferase 28 U/L (7-40); Albumin 4.6 g/dL (3.2-4.8); Alkaline Phosphatase 83 U/L (46-116); Anion Gap 5 (5-15); Aspartate Aminotransferase 21 U/L (13-40); BUN/Creatinine Ratio 16.1 (10.0-20.0); Bilirubin, Total 0.4 mg/dL (0.2-1.0); Blood Urea Nitrogen 18 mg/dL (9-23); Calcium 10.2 mg/dL (8.5-10.1); Carbon Dioxide 28 mmol/L (20-30); Chloride 107 mmol/L (98-107); Cholesterol 223 mg/dL (< 200); Glucose 108 mg/dL (74-106); HDL Cholesterol 62 mg/dL (40-59); LDL Cholesterol 150 mg/dL (< 100); Potassium 4.4 mmol/L (3.5-5.1); Sodium 140 mmol/L (136-145); Triglycerides 62 mg/dL (< 150)
== END | disposition home or self-care (01) ==
LOC: LAB 12:35
PROVIDERS: ATTEND Student in an Organized Health Care Education/Training Program
DX: I25.810 Atherosclerosis of coronary artery bypass graft(s) without angina pectoris (principal); I10 Essential (primary) hypertension; E11.9 Type 2 diabetes mellitus without complications
CPT/HCPCS: 36415; 80053; 80061; 83036; 84443; 85025

== ENCOUNTER 2023-09-25 08:18 | Observation (INO) | payer OTHER ==
[2023-09-20 09:22] LABS: Urine Epithelial Cast None Seen /hpf (<5)
[2023-09-20 09:30] LABS: Basophils # (auto) 0 10 ^3/uL (0-0.2); Basophils % (auto) 0.7 % (0.0-2.0); Eosinophils # (auto) 0.1 10 ^3/uL (0-0.8); Eosinophils % (auto) 1.9 % (0.0-7.0); Hematocrit 47.4 % (41.0-53.0); Lymphocytes # (auto) 1.5 10 ^3/uL (0.4-5.4); Lymphocytes % (auto) 23.5 % (10.0-50.0); Mean Corpuscular Hemoglobin 29.9 pg (28.0-32.0); Mean Corpuscular Hgb Conc. 33.8 g/dL (32.0-36.0); Mean Corpuscular Volume 88.4 fL (80.0-100.0); Monocytes # (auto) 0.6 10 ^3/uL (0-1.3); Monocytes % (auto) 9.5 % (0.0-12.0); Neutrophils % (auto) 64.4 % (37.0-80.0); Nucleated Red Blood Cells % 0.1 %; Red Blood Cells 5.36 10^6/uL (4.5-5.90); Red Cell Distribution Width 14.8 % (11.8-14.3); White Blood Cell 6.2 10^3/uL (4.4-10.8)
[2023-09-20 09:40] LABS: Urine Bacteria NONE SEEN /hpf (None Seen); Urine Blood Negative /uL (Negative); Urine Clarity Clear (Clear); Urine Protein, UAD Negative (Negative); Urine Specific Gravity 1.012 (1.001-1.035); Urine Urobilinogen Normal (Negative); Urine WBC <1 /hpf (0 - 3)
[2023-09-20 09:49] LABS: INR 0.98 (0.9-1.15); Partial Thromboplastin Time 25.1 SEC (24.5-34.5); Prothrombin Time 10.3 sec (9.3-11.8); Urine Color Straw (Yellow)
[2023-09-20 10:24] LABS: Alanine Aminotransferase 26 U/L (7-40); Albumin 4.3 g/dL (3.2-4.8); Alkaline Phosphatase 81 U/L (46-116); Anion Gap 6 (5-15); Aspartate Aminotransferase 27 U/L (13-40); BUN/Creatinine Ratio 13.3 (10.0-20.0); Bilirubin, Total 0.3 mg/dL (0.2-1.0); Blood Urea Nitrogen 16 mg/dL (9-23); Calcium 9.3 mg/dL (8.5-10.1); Carbon Dioxide 25 mmol/L (20-30); Chloride 108 mmol/L (98-107); Cholesterol 194 mg/dL (< 200); Glucose 157 mg/dL (74-106); HDL Cholesterol 58 mg/dL (40-59); LDL Cholesterol 123 mg/dL (< 100); Potassium 4.4 mmol/L (3.5-5.1); Sodium 139 mmol/L (136-145); Total Protein 6.7 g/dL (5.7-8.2); Triglycerides 66 mg/dL (< 150)
[2023-09-20 10:57] LABS: Creatinine, Urine 74.2 mg/dL (30.0-125.0)
[~2023-09-25] VITALS: Ht 167.6 cm; Wt 76.5 kg
[~2023-09-25 08:18] MED LIST changes: +HYDR-4072 PO; -OXYC325T14 PO
[2023-09-25] MEDS ORDERED: SODIUM CHLORIDE LOCK 10 ML ONE ×2 (08:45→09:59)
[2023-09-25] MEDS ORDERED: MEPERIDINE HCL (25 MG/ML) 1ML VIAL ONE (09:58)
[2023-09-25] MEDS ORDERED: fentaNYL CITRATE 100 MCG/2 ML VL ONE (09:59)
[2023-09-25] MEDS ORDERED: PROPOFOL 10 MG/ML 20 ML IV ONE (09:59)
[2023-09-25] MEDS ORDERED: MIDAZOLAM HCL 2MG/2ML 2ml VIAL (1mg/ml) ONE (09:59)
[2023-09-25] MEDS ORDERED: DexAMETHasone SOD PHOS 10MG/1ML VIAL INJ ONE (09:59)
[2023-09-25] MEDS ORDERED: ONDANSETRON HCL 4 MG/2 ML VIAL ONE (09:59)
[2023-09-25] MEDS ORDERED: ROCURONIUM 10MG/ML 10ML VIAL IV ONE (09:59)
[2023-09-25] MEDS ORDERED: NEOSTIGMINE 1 MG/ML INJ (10mg/10ML VIAL) ONE (09:59)
[2023-09-25] MEDS ORDERED: GLYCOPYRROLATE 0.2 MG/ML 1ML VIAL ONE (09:59)
[2023-09-25] MEDS ORDERED: MORPHINE SULFATE INJ 2 MG/ml SYRG IV PRN (11:30)
[2023-09-25] MEDS ORDERED: METOCLOPRAMIDE HCL 5MG/ml INJ 2ml VIAL IV PRN (11:30)
[2023-09-25] MEDS ORDERED: HYDROmorphone HCL 2 MG/ML VL/or syr IV PRN (11:30)
[2023-09-25] MEDS ORDERED: NITROGLYCERIN 0.4 MG SL TAB SL PRN (12:45)
[2023-09-25] MEDS ORDERED: DEXTROSE (50%) 50ML SYRG IV PRN ×2 (12:45→15:00)
[2023-09-25 13:45] VITALS: PULSE 98; RESP 19; O2SAT 99
[2023-09-25] MEDS: HYDROmorphone HCL 2 MG/ML VL/or syr IV PRN ×2 (13:45→17:50)
[2023-09-25] MEDS: MORPHINE SULFATE INJ 2 MG/ml SYRG IV PRN (14:40)
[2023-09-25] MEDS ORDERED: hydrALAZINE HCL 20 MG/ML VL IV PRN (15:00)
[2023-09-25 16:15] VITALS: PULSE 97; RESP 18; O2SAT 96
[2023-09-25 16:45] VITALS: BP 132/78; PULSE 97; RESP 18; TEMP 97.8; O2SAT 96
[2023-09-25] MEDS: EPINEPHrine HCL 1 MG/1 ML AMP ONE ×2 (16:45→16:46)
[2023-09-25] MEDS: ACCU-CHEK COMFORT CURVE STRIP VI ONE (16:45)
[2023-09-25] MEDS: DexAMETHasone SOD PHOS 4 MG/1ML SDV INJ ONE (16:45)
[2023-09-25] MEDS: SODIUM CHLOR 0.9% PF (SALINE LOCK) 10ML VIAL/SYR IV SCH (16:46)
[2023-09-25] MEDS: CARISOPRODOL 350 MG TAB PO SCH (16:46)
[2023-09-25] MEDS: NICOTINE 21MG/24 HR TOPICAL PATCH TD ONE (16:47)
[2023-09-25] MEDS ORDERED: InsuLIN REG 1unit/0.01ml Soln (100units/ml) SC SCH (17:00)
[2023-09-25] MEDS ORDERED: ACCU-CHEK COMFORT CURVE STRIP VI SCH (17:00)
[2023-09-25] MEDS: ceFAZolin 1GM/50ML 50 ML IV SCH (17:26)
[2023-09-25] MEDS: ACCU-CHEK COMFORT CURVE STRIP VI SCH (17:48)
[2023-09-25] MEDS: InsuLIN REG 1unit/0.01ml Soln (100units/ml) SC SCH ×2 (17:49→22:00)
[2023-09-25 20:00] VITALS: PULSE 91
[2023-09-25 21:58] VITALS: BP 117/59; PULSE 98; RESP 17; TEMP 98.5; O2SAT 96
[2023-09-25] MEDS: MELOXICAM 7.5 MG PO SCH (22:00)
[2023-09-25] MEDS: ATORVASTATIN 20 MG TAB PO SCH (22:19)
[2023-09-25] MEDS: HYDROcodone-ACET 10/325MG TAB PO PRN (22:20)
[2023-09-25] MEDS: CARVEDILOL 3.125 MG TAB PO SCH (22:21)
[2023-09-26 05:00] VITALS: BP 106/55; PULSE 85; RESP 18; TEMP 97.6; O2SAT 96
[2023-09-26 06:17] LABS: Basophils # (auto) 0 10 ^3/uL (0-0.2); Basophils % (auto) 0.1 % (0.0-2.0); Eosinophils # (auto) 0 10 ^3/uL (0-0.8); Hematocrit 41.4 % (41.0-53.0); Hemoglobin 14.1 g/dL (13.5-17.5); Lymphocytes # (auto) 0.9 10 ^3/uL (0.4-5.4); Lymphocytes % (auto) 9.9 % (10.0-50.0); Mean Corpuscular Hemoglobin 30.2 pg (28.0-32.0); Mean Corpuscular Volume 88.8 fL (80.0-100.0); Monocytes # (auto) 0.6 10 ^3/uL (0-1.3); Monocytes % (auto) 5.9 % (0.0-12.0); Neutrophils % (auto) 84.1 % (37.0-80.0); Nucleated Red Blood Cells % 0.1 %; Red Blood Cells 4.66 10^6/uL (4.5-5.90); Red Cell Distribution Width 15.1 % (11.8-14.3); White Blood Cell 9.5 10^3/uL (4.4-10.8)
[2023-09-26 06:41] LABS: Alanine Aminotransferase 15 U/L (7-40); Alkaline Phosphatase 65 U/L (46-116); Anion Gap 9 (5-15); BUN/Creatinine Ratio 18.5 (10.0-20.0); Blood Urea Nitrogen 17 mg/dL (9-23); Calcium 8.7 mg/dL (8.5-10.1); Carbon Dioxide 21 mmol/L (20-30); Chloride 108 mmol/L (98-107); Glucose 136 mg/dL (74-106); Potassium 4.7 mmol/L (3.5-5.1); Sodium 138 mmol/L (136-145)
[2023-09-26 06:42] LABS: Albumin 3.8 g/dL (3.2-4.8); Aspartate Aminotransferase 16 U/L (13-40); Bilirubin, Total 0.5 mg/dL (0.2-1.0); Total Protein 5.8 g/dL (5.7-8.2)
[2023-09-26 07:30] VITALS: PULSE 84
[2023-09-26] MEDS: ASPirin 81 mg TAB PO SCH (08:45)
[2023-09-26] MEDS: CLOPIDOGREL BISULFATE 75 MG TAB PO SCH (08:45)
[2023-09-26] MEDS: NICOTINE 21MG/24 HR TOPICAL PATCH TD SCH (08:46)
[2023-09-26 09:00] VITALS: BP 99/56; PULSE 75; RESP 17; TEMP 97.8; O2SAT 93
[2023-09-26] MEDS ORDERED: PATIENTS OWN MEDICATION (Losartan Potassium 1 TAB) PO SCH (10:00)
[2023-09-26] MEDS: LOSARTAN POTASSIUM 50 MG TAB PO SCH (10:00)
[2023-09-26] MEDS ORDERED: HYDR-4798 PO (12:49)
[2023-09-26 13:00] VITALS: BP 120/71; PULSE 94; RESP 19; TEMP 97.5; O2SAT 96
== END 2023-09-26 14:00 | disposition home or self-care (01) ==
LOC: SUR 08:18 → TELE 12:51 → TELE-WESTW 15:43
PROVIDERS: ADMIT Orthopaedic Surgery Adult Reconstructive Orthopaedic Surgery; ATTEND Internal Medicine
DX: M75.121 Complete rotator cuff tear or rupture of right shoulder, not specified as traumatic (principal); M25.811 Other specified joint disorders, right shoulder; M65.811 Other synovitis and tenosynovitis, right shoulder; M19.011 Primary osteoarthritis, right shoulder; E11.9 Type 2 diabetes mellitus without complications; I10 Essential (primary) hypertension; I25.10 Atherosclerotic heart disease of native coronary artery without angina pectoris; E78.5 Hyperlipidemia, unspecified; F17.200 Nicotine dependence, unspecified, uncomplicated; Z86.2 Personal history of diseases of the blood and blood-forming organs and certain disorders involving the immune mechanism
CPT/HCPCS: 29824; 29826; 29827; 29828; 36415; 80053; 80061; 81001; 82043; 82570; 82962; 83036; 85025; 85610; 85730; 96365; 96366; 96372; 96375; 97163; C1713; C1889; G0378; J0171; J0690; J1100; J1170; J1815; J2175; J2250; J2270; J2405; J2704; J3010; J7030; A4565

== ENCOUNTER 2023-11-06 11:19 | Emergency (ER) | payer OTHER ==
[~2023-11-06] VITALS: Ht 167.6 cm; Wt 74.4 kg
[2023-11-06 11:19] VITALS: BP 139/87; RESP 16; O2SAT 96
[~2023-11-06 11:19] MED LIST changes: +HYDR-4798 PO
[2023-11-06 12:01] VITALS: PULSE 87
[2023-11-06 13:04] LABS: Basophils # (auto) 0.1 10 ^3/uL (0-0.2); Basophils % (auto) 1.1 % (0.0-2.0); Eosinophils # (auto) 0 10 ^3/uL (0-0.8); Eosinophils % (auto) 0.4 % (0.0-7.0); Hemoglobin 16.4 g/dL (13.5-17.5); Lymphocytes # (auto) 2.1 10 ^3/uL (0.4-5.4); Mean Corpuscular Hemoglobin 29.8 pg (28.0-32.0); Mean Corpuscular Hgb Conc. 33.4 g/dL (32.0-36.0); Mean Corpuscular Volume 89.1 fL (80.0-100.0); Monocytes # (auto) 0.4 10 ^3/uL (0-1.3); Monocytes % (auto) 4.5 % (0.0-12.0); Neutrophils # (auto) 7.3 10 ^3/uL (1.6-8.6); Nucleated Red Blood Cells % 0.3 %; Red Cell Distribution Width 15.1 % (11.8-14.3)
[2023-11-06 13:18] LABS: Partial Thromboplastin Time 24.8 SEC (24.5-34.5); Prothrombin Time 10.5 sec (9.3-11.8)
[2023-11-06 13:22] LABS: Alanine Aminotransferase 29 U/L (7-40); Albumin 4.6 g/dL (3.2-4.8); Alkaline Phosphatase 103 U/L (46-116); Anion Gap 7 (5-15); Aspartate Aminotransferase 21 U/L (13-40); Bilirubin, Total 0.6 mg/dL (0.2-1.0); Blood Urea Nitrogen 19 mg/dL (9-23); Carbon Dioxide 28 mmol/L (20-30); Chloride 101 mmol/L (98-107); Glucose 205 mg/dL (74-106); Potassium 4.7 mmol/L (3.5-5.1); Sodium 136 mmol/L (136-145); Total Protein 7.1 g/dL (5.7-8.2)
[2023-11-06] MEDS ORDERED: VALA1TAB PO (14:17)
[2023-11-06] MEDS ORDERED: PRED20TA2 PO (14:17)
== END 2023-11-06 17:24 | disposition home or self-care (01) ==
LOC: ER 11:19
DX: G51.0 Bell's palsy (principal); I10 Essential (primary) hypertension; E11.9 Type 2 diabetes mellitus without complications; E78.5 Hyperlipidemia, unspecified; I25.2 Old myocardial infarction; F17.210 Nicotine dependence, cigarettes, uncomplicated; Z98.890 Other specified postprocedural states; Z79.899 Other long term (current) drug therapy; Z86.2 Personal history of diseases of the blood and blood-forming organs and certain disorders involving the immune mechanism
CPT/HCPCS: 36415; 70450; 80053; 82962; 84484; 85025; 85610; 85730; 93005

== ENCOUNTER 2023-11-14 09:14 | Inpatient (IN) | payer OTHER ==
[~2023-11-14] VITALS: Ht 167.6 cm; Wt 75.0 kg
[~2023-11-14 09:14] MED LIST changes: +VALA1TAB PO
[2023-11-14 10:35] LABS: Basophils # (auto) 0 10 ^3/uL (0-0.2); Basophils % (auto) 0.1 % (0.0-2.0); Eosinophils # (auto) 0.1 10 ^3/uL (0-0.8); Eosinophils % (auto) 0.6 % (0.0-7.0); Hematocrit 50.4 % (41.0-53.0); Lymphocytes % (auto) 20.1 % (10.0-50.0); Mean Corpuscular Hemoglobin 30.2 pg (28.0-32.0); Mean Corpuscular Hgb Conc. 33.7 g/dL (32.0-36.0); Mean Corpuscular Volume 89.7 fL (80.0-100.0); Monocytes # (auto) 0.7 10 ^3/uL (0-1.3); Monocytes % (auto) 6.8 % (0.0-12.0); Neutrophils # (auto) 7.1 10 ^3/uL (1.6-8.6); Neutrophils % (auto) 72.4 % (37.0-80.0); Nucleated Red Blood Cells % 0.2 %; Red Blood Cells 5.62 10^6/uL (4.5-5.90); White Blood Cell 9.8 10^3/uL (4.4-10.8)
[2023-11-14 10:46] LABS: Anion Gap 5 (5-15); Carbon Dioxide 29 mmol/L (20-30); Chloride 102 mmol/L (98-107); Potassium 4.8 mmol/L (3.5-5.1); Sodium 136 mmol/L (136-145)
[2023-11-14 10:47] LABS: Calcium 9.8 mg/dL (8.5-10.1)
[2023-11-14 10:51] LABS: Glucose 282 mg/dL (74-106)
[2023-11-14 10:52] LABS: BUN/Creatinine Ratio 30.4 (10.0-20.0); Blood Urea Nitrogen 35 mg/dL (9-23)
[2023-11-14 12:03] LABS: Urine Bacteria NONE SEEN /hpf (None Seen); Urine Blood Negative /uL (Negative); Urine Clarity Clear (Clear); Urine Color Yellow (Yellow); Urine Hyaline Cast FEW /lpf (0 - 2); Urine Protein, UAD Negative (Negative); Urine Urobilinogen Normal (Negative); Urine WBC 1 /hpf (0 - 3)
[2023-11-14] MEDS ORDERED: NITROGLYCERIN 0.4 MG SL TAB SL PRN (14:30)
[2023-11-14] MEDS ORDERED: MORPHINE SULFATE INJ 2 MG/ml SYRG IV PRN ×2 (14:30)
[2023-11-14] MEDS ORDERED: ONDANSETRON HCL 4 MG/2 ML VIAL IV PRN (14:30)
[2023-11-14] MEDS ORDERED: ACETAMINOPHEN 325 MG TAB PO PRN (14:30)
[2023-11-14] MEDS ORDERED: DOCUSATE SOD 100 MG CAP PO PRN (14:30)
[2023-11-14] MEDS ORDERED: DEXTROSE (50%) 50ML SYRG IV PRN (15:45)
[2023-11-14] MEDS: SODIUM CHLORIDE 0.9% 1,000 ML IV SCH (16:36)
[2023-11-14] MEDS: ACCU-CHEK COMFORT CURVE STRIP VI SCH (18:00)
[2023-11-14] MEDS: InsuLIN REG 1unit/0.01ml Soln (100units/ml) SC SCH (18:54)
[2023-11-14 19:35] VITALS: PULSE 72; RESP 20; O2SAT 96
[2023-11-14] MEDS: CARVEDILOL 3.125 MG TAB PO SCH (22:00)
[2023-11-14] MEDS: ATORVASTATIN 20 MG TAB PO SCH (22:00)
[2023-11-14 23:00] VITALS: RESP 20
[2023-11-14] MEDS ORDERED: LORazepam 2MG/ML-1ML VIAL IV PRN (23:45)
[2023-11-14] MEDS: CLOPIDOGREL BISULFATE 75 MG TAB PO SCH (23:45)
[2023-11-15] VITALS (7 sets, daily range): BP systolic 109–137; BP diastolic 73–88; PULSE 73–86; RESP 16–22; TEMP 97.7–98.5; O2SAT 96–99
[2023-11-15 00:02] LABS: Amphetamine Screen, Urine Neg (NEGATIVE); Barbiturate Scree,Urine Neg (NEGATIVE); Benzodiazephine Screen, Urine Neg (NEGATIVE); Cannabinoid Screen, Urine Neg (NEGATIVE); Cocaine Screen, Urine Neg (NEGATIVE); Opiate Scree,Urine Neg (NEGATIVE); Phencyclidine Screen, Urine Neg (NEGATIVE)
[2023-11-15] MEDS ORDERED: ROSU20TA14 PO (05:42)
[2023-11-15] MEDS ORDERED: SERT-206 PO (05:42)
[2023-11-15] MEDS ORDERED: CYCL-839 PO (05:42)
[2023-11-15] MEDS ORDERED: TAMS0.4C36 PO (05:42)
[2023-11-15] MEDS ORDERED: MORP1TAB14 PO (05:42)
[2023-11-15 06:10] LABS: Basophils # (auto) 0 10 ^3/uL (0-0.2); Basophils % (auto) 0.2 % (0.0-2.0); Eosinophils # (auto) 0.1 10 ^3/uL (0-0.8); Hemoglobin 16.8 g/dL (13.5-17.5); Lymphocytes # (auto) 2.6 10 ^3/uL (0.4-5.4); Lymphocytes % (auto) 25.8 % (10.0-50.0); Mean Corpuscular Hemoglobin 30.1 pg (28.0-32.0); Mean Corpuscular Hgb Conc. 33.6 g/dL (32.0-36.0); Mean Corpuscular Volume 89.5 fL (80.0-100.0); Monocytes # (auto) 0.6 10 ^3/uL (0-1.3); Monocytes % (auto) 6.1 % (0.0-12.0); Neutrophils # (auto) 6.7 10 ^3/uL (1.6-8.6); Neutrophils % (auto) 66.9 % (37.0-80.0); Nucleated Red Blood Cells % 0.1 %; Red Blood Cells 5.59 10^6/uL (4.5-5.90); Red Cell Distribution Width 15.1 % (11.8-14.3)
[2023-11-15 06:33] LABS: Alanine Aminotransferase 30 U/L (7-40); Alkaline Phosphatase 84 U/L (46-116); Anion Gap 7 (5-15); Aspartate Aminotransferase 17 U/L (13-40); BUN/Creatinine Ratio 19.8 (10.0-20.0); Blood Urea Nitrogen 20 mg/dL (9-23); Calcium 9.2 mg/dL (8.5-10.1); Carbon Dioxide 24 mmol/L (20-30); Chloride 109 mmol/L (98-107); Potassium 3.8 mmol/L (3.5-5.1); Sodium 140 mmol/L (136-145)
[2023-11-15 06:34] LABS: Bilirubin, Total 0.8 mg/dL (0.2-1.0); Total Protein 6.1 g/dL (5.7-8.2)
[2023-11-15 06:35] LABS: Glucose 125 mg/dL (74-106)
[2023-11-15] MEDS: ASPirin-EC 81 mg tab PO SCH (09:47)
[2023-11-15] MEDS: LOSARTAN POTASSIUM 50 MG TAB PO SCH (09:48)
[2023-11-15] MEDS: PANTOPRAZOLE 40 MG/10 ML VIAL INJ IV SCH (09:49)
[2023-11-15] MEDS: ENOXAPARIN SOD 30 MG/0.3 ML SYRINGE SC SCH (09:50)
[2023-11-15] MEDS ORDERED: CLOPIDOGREL BISULFATE 75 MG TAB PO SCH (10:00)
[2023-11-15] MEDS: NICOTINE 21MG/24 HR TOPICAL PATCH TD SCH (10:00)
[2023-11-15] MEDS: ERGOCALCIFEROL 50,000 UNIT(1.25MG) CAP PO SCH (17:30)
[2023-11-15] MEDS: SODIUM CHLORIDE 0.9% 1,000 ML IV SCH (22:45)
[2023-11-16] MEDS: HYDROcodone-ACET 5/325MG TAB PO PRN (00:21)
[2023-11-16 05:00] VITALS: BP 108/38; PULSE 77; RESP 20; TEMP 98.4; O2SAT 96
[2023-11-16 09:04] VITALS: BP 141/72; PULSE 65; RESP 20; TEMP 98.6; O2SAT 98
[2023-11-16 12:15] VITALS: BP 141/72; PULSE 65; TEMP 37
[2023-11-16 12:30] VITALS: BP 118/88; PULSE 81; RESP 18; TEMP 98.4; O2SAT 96
[2023-11-16 16:48] VITALS: BP 146/81; PULSE 80; RESP 20; TEMP 98.1; O2SAT 96
== END 2023-11-16 17:51 | DRG 65 ==
LOC: EDBD 09:14 → ER 09:14 → TELE 14:45 → TELE-WESTW 21:57 → WEST WING 11-15 19:04
PROVIDERS: ADMIT Nurse Practitioner Family; ATTEND Internal Medicine
DX: I63.9 Cerebral infarction, unspecified (principal); G81.91 Hemiplegia, unspecified affecting right dominant side; E11.9 Type 2 diabetes mellitus without complications; I25.10 Atherosclerotic heart disease of native coronary artery without angina pectoris; R29.810 Facial weakness; R47.1 Dysarthria and anarthria; E78.5 Hyperlipidemia, unspecified; I10 Essential (primary) hypertension; E55.9 Vitamin D deficiency, unspecified; F17.210 Nicotine dependence, cigarettes, uncomplicated; X58.XXXA Exposure to other specified factors, initial encounter; S46.811A Strain of other muscles, fascia and tendons at shoulder and upper arm level, right arm, initial encounter; I25.2 Old myocardial infarction; Z95.5 Presence of coronary angioplasty implant and graft; Y93.89 Activity, other specified; Y92.89 Other specified places as the place of occurrence of the external cause; Z83.3 Family history of diabetes mellitus; Z82.49 Family history of ischemic heart disease and other diseases of the circulatory system; Z79.82 Long term (current) use of aspirin; Z79.899 Other long term (current) drug therapy; Z82.0 Family history of epilepsy and other diseases of the nervous system; Z86.73 Personal history of transient ischemic attack (TIA), and cerebral infarction without residual deficits
CPT/HCPCS: 36415; 70450; 70545; 70551; 71045; 80048; 80053; 80307; 81001; 82306; 82962; 84484; 85025; 92523; 92610; 93005; 93306; 93886; 97110; 97116; 97163; 97530; C9113; G0378; J1815

== ENCOUNTER → 2024-04-30 | Outpatient (CLI) | payer OTHER ==
[~2024-04-30] MED LIST changes: -ACET500T58 PO; -CEPH500C PO; +CYCL-839 PO; +LOSA-535 PO; -LOSA100T58 PO; +MORP1TAB14 PO; -ONDA-188 PO; +ROSU20TA14 PO; +SERT-206 PO; +TAMS0.4C39 PO
[2024-04-30 14:21] LABS: Triglycerides 81 mg/dL (< 150)
[2024-04-30 14:22] LABS: LDL Cholesterol 170 mg/dL (< 100)
[2024-04-30 14:23] LABS: Cholesterol 258 mg/dL (< 200); HDL Cholesterol 74 mg/dL (40-59)
== END | disposition home or self-care (01) ==
LOC: LAB 13:50
PROVIDERS: ATTEND Internal Medicine
DX: E11.9 Type 2 diabetes mellitus without complications (principal); E78.5 Hyperlipidemia, unspecified
CPT/HCPCS: 36415; 80061; 83036

== ENCOUNTER → 2024-07-02 | Outpatient (CLI) | payer OTHER ==
[2024-07-02 14:44] LABS: Albumin 4.4 g/dL (3.2-4.8); Bilirubin, Direct 0.2 mg/dL (<0.3); Bilirubin, Total 0.6 mg/dL (0.2-1.0); Total Protein 6.8 g/dL (5.7-8.2)
== END | disposition home or self-care (01) ==
LOC: LAB 13:34
PROVIDERS: ATTEND Internal Medicine
DX: E78.5 Hyperlipidemia, unspecified (principal)
CPT/HCPCS: 36415; 80061; 80076

== ENCOUNTER → 2024-08-27 | Outpatient (CLI) | payer OTHER ==
[2024-08-27 11:12] LABS: Alanine Aminotransferase 25 U/L (7-40); Albumin 4.3 g/dL (3.2-4.8); Alkaline Phosphatase 81 U/L (46-116); Anion Gap 6 (5-15); Aspartate Aminotransferase 19 U/L (13-40); BUN/Creatinine Ratio 19.8 (10.0-20.0); Blood Urea Nitrogen 23 mg/dL (9-23); Carbon Dioxide 28 mmol/L (20-31); Chloride 107 mmol/L (98-107); Potassium 4.8 mmol/L (3.5-5.1); Sodium 141 mmol/L (136-145); Triglycerides 62 mg/dL (< 150)
[2024-08-27 11:13] LABS: Bilirubin, Total 0.5 mg/dL (0.2-1.0); Total Protein 6.8 g/dL (5.7-8.2)
[2024-08-27 11:33] LABS: Cholesterol 211 mg/dL (< 200); Glucose 212 mg/dL (74-106); HDL Cholesterol 67 mg/dL (40-59); LDL Cholesterol 131 mg/dL (< 100)
== END | disposition home or self-care (01) ==
LOC: LAB 10:25
PROVIDERS: ATTEND Internal Medicine
DX: I10 Essential (primary) hypertension (principal); E11.9 Type 2 diabetes mellitus without complications
CPT/HCPCS: 36415; 80053; 80061; 83036

== ENCOUNTER → 2024-12-12 | Outpatient (CLI) | payer MEDICAID ==
[2024-12-12 11:02] LABS: Alanine Aminotransferase 20 U/L (7-40); Albumin 4.4 g/dL (3.2-4.8); Alkaline Phosphatase 70 U/L (46-116); Anion Gap 5 (5-15); Aspartate Aminotransferase 15 U/L (13-40); BUN/Creatinine Ratio 22.4 (10.0-20.0); Calcium 9.7 mg/dL (8.7-10.4); Carbon Dioxide 27 mmol/L (20-31); Glucose 85 mg/dL (74-106); Potassium 4.5 mmol/L (3.5-5.1); Sodium 141 mmol/L (136-145); Total Protein 6.7 g/dL (5.7-8.2); Triglycerides 51 mg/dL (< 150)
[2024-12-12 11:03] LABS: Bilirubin, Total 0.5 mg/dL (0.2-1.0); Cholesterol 193 mg/dL (< 200)
[2024-12-12 11:13] LABS: Blood Urea Nitrogen 24 mg/dL (9-23); Chloride 109 mmol/L (98-107); HDL Cholesterol 63 mg/dL (40-59); LDL Cholesterol 122 mg/dL (< 100)
[2024-12-12 11:36] LABS: Creatinine, Urine 75.26 mg/dL (30.0-125.0)
== END | disposition home or self-care (01) ==
LOC: LAB 10:25
PROVIDERS: ATTEND Internal Medicine
DX: I10 Essential (primary) hypertension (principal); E11.9 Type 2 diabetes mellitus without complications; E78.5 Hyperlipidemia, unspecified
CPT/HCPCS: 36415; 80053; 80061; 82043; 82570; 83036

== ENCOUNTER 2025-03-03 09:48 | Outpatient (CLI) | payer MEDICAID ==
[2025-03-03 10:10] LABS: Basophils # (auto) 0 10 ^3/uL (0-0.2); Basophils % (auto) 0.6 % (0.0-2.0); Eosinophils # (auto) 0.2 10 ^3/uL (0-0.8); Eosinophils % (auto) 3.1 % (0.0-7.0); Hematocrit 42.8 % (41.0-53.0); Hemoglobin 14.7 g/dL (13.5-17.5); Lymphocytes # (auto) 1.3 10 ^3/uL (0.4-5.4); Lymphocytes % (auto) 19.9 % (10.0-50.0); Mean Corpuscular Hemoglobin 29.6 pg (28.0-32.0); Mean Corpuscular Hgb Conc. 34.3 g/dL (32.0-36.0); Mean Corpuscular Volume 86.1 fL (80.0-100.0); Monocytes # (auto) 0.5 10 ^3/uL (0-1.3); Monocytes % (auto) 6.9 % (0.0-12.0); Neutrophils # (auto) 4.7 10 ^3/uL (1.6-8.6); Neutrophils % (auto) 69.5 % (37.0-80.0); Platelet Count (auto) 184 10^3/uL (140-450); Red Blood Cells 4.97 10^6/uL (4.5-5.90); Red Cell Distribution Width 15.8 % (11.8-14.3); White Blood Cell 6.8 10^3/uL (4.4-10.8)
[2025-03-03 11:06] LABS: Alanine Aminotransferase 27 U/L (7-40); Albumin 4.5 g/dL (3.2-4.8); Alkaline Phosphatase 77 U/L (46-116); Anion Gap 9 (5-15); Aspartate Aminotransferase 20 U/L (<34); BUN/Creatinine Ratio 25.9 (10.0-20.0); Calcium 9.7 mg/dL (8.7-10.4); Carbon Dioxide 24 mmol/L (20-31); Chloride 107 mmol/L (98-107); Potassium 4.6 mmol/L (3.5-5.1); Sodium 140 mmol/L (136-145); Total Protein 6.9 g/dL (5.7-8.2)
[2025-03-03 11:07] LABS: Bilirubin, Total 0.6 mg/dL (0.2-1.0); Blood Urea Nitrogen 28 mg/dL (9-23); Glucose 184 mg/dL (74-106)
[2025-03-03 11:19] LABS: Triglycerides 70 mg/dL (< 150)
[2025-03-03 11:21] LABS: Cholesterol 175 mg/dL (< 200); HDL Cholesterol 55 mg/dL (40-59)
[2025-03-03 11:26] LABS: LDL Cholesterol 113 mg/dL (< 100)
== END 2025-03-03 17:00 | disposition home or self-care (01) ==
LOC: LAB 09:48
PROVIDERS: ATTEND Internal Medicine
DX: I10 Essential (primary) hypertension (principal); E78.5 Hyperlipidemia, unspecified; E11.9 Type 2 diabetes mellitus without complications
CPT/HCPCS: 36415; 80053; 80061; 83036; 85025

== ENCOUNTER 2025-04-22 08:24 | Outpatient (CLI) | payer MEDICAID ==
[2025-04-22] MEDS ORDERED: methylPREDNISolone ACETATE 80 MG/ML VL ONE (08:49)
[2025-04-22] MEDS ORDERED: IOHEXOL 300 MG/ML 100ML BOTTLE IJ ONE (08:49)
[2025-04-22] MEDS ORDERED: LIDOCAINE 2%HCL (LOCAL ANESTH.) INJ 10ml MDV ONE (08:49)
[2025-04-22] MEDS ORDERED: BUPIVACAINE HCL 0.25% P/F 10 ML VIAL ONE (08:49)
--- NOTE | 2025-04-22 10:38 | DVH ---
CLINICAL INDICATION: PRIMARY OA LEFT HIP TECHNIQUE: 1 radiographic views of the pelvis were obtained. Comparison: None FINDINGS/IMPRESSION: There is no evidence of acute fracture or dislocation. Moderate osteoarthrosis of the bilateral femoroacetabular joint.
--- NOTE | 2025-04-22 10:43 | DVH ---
PROCEDURE: Joint injection Procedural Personnel Attending physician(s): Mark Cobos Fellow physician(s): None Resident physician(s): None Advanced practice provider(s): None Pre-procedure diagnosis: Left hip osteoarthritis Post-procedure diagnosis: Same Indication: Pain Additional clinical history: None Complications: No immediate complications. IMPRESSION: Image-guided therapeutic left hip joint injection. Plan: The patient tolerated the procedure well. PROCEDURE SUMMARY: - Left hip joint injection with fluoroscopic guidance - Additional procedure(s): None PROCEDURE DETAILS: Pre-procedure Consent: Informed consent for the procedure including risks, benefits and alternatives was obtained a nd time-out was performed prior to the procedure. Preparation: The site was prepared and draped using maximal sterile barrier technique including cutan eous antisepsis. Anesthesia/sedation Level of anesthesia/sedation: No sedation Anesthesia/sedation administered by: Not applicable Total intra-service sedation time (minutes): Not applicable. Joint injection The patient was positioned supine. Local anesthesia was administered. Under image guidance, a needle was advanced into the joint space, with intra-articular position confirmed with arthrography. Injecti on was performed. Needle: 22 gauge, 3.5 inch Contrast administered: 1 mL of Omnipaque 350 Anesthetic administered: 5 mL of 0.5% bupivicaine Medication administered: 80 mg of methylprednisolone Findings: Appropriate opacification of the joint space Closure The needle was removed and hemostasis was achieved with manual compression. A sterile bandage was palmer lied. Contrast Contrast agent: Omnipaque 350 Contrast volume (mL): 1 Radiation Dose Fluoroscopy time (minutes): 0.2 Reference air kerma (mGy): 0.7 Kerma area product (uGy-m2): 6.59 Additional Details Additional description of procedure: None Registry event: V/3/g Device used: None Equipment details: None Unique Device Identifiers: Not available Specimens removed: None Estimated blood loss (mL): Less than 10 Standardized report: [email or web address] Attestation Signer name: Mark Cobos I attest that I was present for the entire procedure. I reviewed the stored images and agree with the report as written.
== END 2025-04-22 17:00 | disposition home or self-care (01) ==
LOC: XYW 08:24
PROVIDERS: ATTEND Orthopaedic Surgery Adult Reconstructive Orthopaedic Surgery
DX: M16.12 Unilateral primary osteoarthritis, left hip (principal)
CPT/HCPCS: 20610; 73501; 77002; J1010; J2003; J3490; Q9967

== ENCOUNTER 2025-06-05 09:42 | Outpatient (CLI) | payer MEDICAID ==
[2025-06-05 11:03] LABS: Triglycerides 54 mg/dL (< 150)
[2025-06-05 11:04] LABS: Cholesterol 126 mg/dL (< 200); HDL Cholesterol 52 mg/dL (40-59)
== END 2025-06-05 17:00 | disposition home or self-care (01) ==
LOC: LAB 09:42
PROVIDERS: ATTEND Internal Medicine
DX: E11.9 Type 2 diabetes mellitus without complications (principal)
CPT/HCPCS: 36415; 80061; 83036

== ENCOUNTER 2025-06-08 21:32 | Inpatient (IN) | payer OTHER, MEDICAID ==
[~2025-06-08] VITALS: Ht 177.8 cm; Wt 80.0 kg
[2025-06-08 22:05] VITALS: PULSE 97; RESP 16; O2SAT 96
--- NOTE | 2025-06-08 22:07 | ED.PDOC ---
HPI Comments 84 y/o M, with a Hx of AK and PTCA, is BIBA from private residence for c/c of chest pain. Nonradiating and substernal, dull pain, similar to previous AK he experienced 2-3 months ago after being seen at [facility]. Denial of any shortness of breath or further acute symptoms. Chief Complaint: Chest Pain Time Seen by MD: 21:55 Primary Care Provider: RAJESH Reviewed Notes: Nurses Notes, Residential Roofer Helper Notes, Medications, Allergies Allergies: Coded Allergies: NO KNOWN ALLERGIES (Unverified , 02/05/20) Home Meds Active Scripts Valacyclovir Hcl (Valtrex) 1 Gm Tab, 1 TAB PO TID for 5 Days, #15 TAB Prov:TONE ROBBINS MD 11/06/23 Prednisone (Prednisone) 20 Mg Tab, 20 MG PO DAILY for 10 Days, #23 TAB 3 tabs po daily x 5 days, then 2 tabs x 3 days, then 1 tab x 2 days Prov:TONE ROBBINS MD 11/06/23 Hydrocodone-Acetaminophen (Hydrocodone Bitartrate/AC 10-325 mg) 1 Tab Tab, 1 TAB PO Q6HP PRN for 2 Days, #8 TAB Prov:ROBYN CASTILLO MD 09/26/23 Atorvastatin Calcium (ATORVASTATIN CALCIUM) 20 Mg Tab, 40 MG PO HS for 30 Days, #30 TAB Prov:CHARLES GODINEZ MD 12/25/20 Aspirin (Aspirin Low Strength) 81 Mg Chw, 162 MG PO DAILY for 30 Days, #30 TAB.CHEW Prov:CHARLES GODINEZ MD 12/25/20 Reported Medications Morphine Sulfate (Morphine Sulfate Er) 60 Mg Tab, 15 MG PO, TAB 11/15/23 Sertraline Hcl (Sertraline Hcl) 50 Mg Tab, 25 MG PO DAILY for 30 Days, MG 11/15/23 Rosuvastatin Calcium (Crestor) 20 Mg Tab, 1 TAB PO DAILY, #30 TAB 5 Refills 11/15/23 Cyclobenzaprine Hcl (Cyclobenzaprine Hcl) 10 Mg Tab, 10 MG PO Q8HR for 30 Days, MG 11/15/23 Tamsulosin Hcl (Tamsulosin Hcl) 0.4 Mg Cap, 0.4 MG PO QPM for 30 Days, MG 11/15/23 Hydrocodone-Acetaminophen (Hydrocodone/Acetaminophen 10-325 mg) Unknown Strength Tab, PO PRN, TAB 09/20/23 Carvedilol (Carvedilol) 3.125 Mg Tab, 3.125 MG PO BID, TAB 10/26/22 Empagliflozin (Jardiance) 10 Mg Tab, 10 MG PO DAILY, TAB 10/26/22 Meloxicam (Meloxicam) 7.5 Mg Tab, 7.5 MG PO BID, TAB 10/26/22 Carisoprodol (Soma) 350 Mg Tab, 350 MG PO TID, TAB 10/26/22 Clopidogrel Bisulfate (CLOPIDOGREL) 75 Mg Tab, 1 TAB PO DAILYPRN 08/29/22 Losartan Potassium (Losartan Potassium) 100 Mg Tab, 1 TAB PO DAILYPRN 08/29/22 Insulin Regular (Human) (Novolin R) 100 Unit/Ml Inj, 10 UNIT SC TIDWM, INJ 02/05/20 Metformin Hydrochloride (Metformin Hcl) 1,000 Mg Tab, 1 TAB PO BID, #60 TAB 5 Refills 02/05/20 Insulin Glargine (Basaglar Kwikpen) 100 Unit/Ml Inj, 50 UNIT SC DAILY, INJ 02/05/20 Information Source: Patient, Emergency Med Personnel Mode of Arrival: EMS Severity: Moderate Timing: Hours Duration: Since onset Prehospital treatment: 12 Lead EKG, Accucheck, Dry Press Operator Helper, NTG Past Medical History PAST MEDICAL HISTORY: DM, High Lipids, HTN, AK Surgical History: PTCA, Tonsillectomy Family History Family History: Reviewed,noncontributory to illness Social History Smoker: Cigarettes, Less Than 1 Pack/Day Alcohol: Occasionally Drugs: Denies Drug Use Lives In: Home All Other Systems: Reviewed and Negative (Comprehensive review of systems are negative unless stated in HPI) Physical Exam General Appearance: Mild Distress, Normal, Other (elderly appearing ) HEENT: Normal ENT Inspection, Pharynx Normal, TMs Normal Neck: Full Range of Motion, Non-Tender, Normal, Normal Inspection Respiratory: Chest Non-Tender, Lungs Clear, No Accessory Muscle Use, No Respiratory Distress, Normal Breath Sounds Cardiovascular: No Edema, No JVD, No Murmur, No Gallop, Normal Peripheral Puls es, Regular Rate/Rhythm Breast Exam: Deferred Gastrointestinal: No Organomegaly, Non Tender, No Pulsatile Mass, Normal Bowel Sounds, Soft Genitalia: Deferred Pelvic: Deferred Rectal: Deferred Extremities: No calf tenderness, Normal capillary refill, Normal inspection, Normal range of motion, Non-tender, No pedal edema Musculoskeletal : Apperance: Normal Neurologic: Alert, digital photo printer II-XII nml as Tested, No Motor Deficits, Normal Affect, Normal Mood, No Sensory Deficits Cerebellar Function: Normal Reflexes: Normal Skin: Dry, Normal Color, Warm Lymphatic: No Adenopathy EKG EKG : Pulse Rate (adult): 96 Dexter: Normal Cardiac Rhythm: NSR Block: None Hypertrophy: None Comments ST deviation Was a procedure done? Was a procedure done?: No CP Differential Dx Differential Diagnosis: AK, Other, N/A Differential Diagnosis: N/A Differential Diagnosis: Angina, Chest Wall Pain, Cholelithiasis, Costochondritis, Esophageal reflux/spasm, Gastritis, Myocardial Infarction, Pericarditis, Pneumonia, Pulmonary Embolus X-Ray, Labs, Meds, VS Vital Signs Date Time Temp Pulse Resp B/P (MAP) Pulse Ox O2 Delivery O2 Flow Rate FiO2 06/08/25 21:42 93 06/08/25 21:35 96 Time of 1ST Reevaluation: 22:25 Reevaluation 1ST: Unchanged Patient Education/Counseling: Treatment, Other (admission ) Family Education/Counseling: No Family Present SEPSIS Sepsis Screen Physician Orders Electrocardigram (06/08/25 21:54) Electrocardigram (06/08/25 22:54) Electrocardigram (06/09/25 00:54) Complete Blood Count (06/08/25 21:55) Chest Portable (06/08/25 21:55) Comprehensive Metabolic Panel (06/08/25 21:55) PTPTT (06/08/25 21:55) B-Type Natriuretic Peptide (06/08/25 21:55) Dry Press Operator Helper (06/08/25 21:55) Troponin-I Hs (06/08/25 21:55) Troponin-I Hs (06/08/25 22:55) Troponin-I Hs (06/09/25 00:55) Vital Signs Date Time Temp Pulse Resp B/P (MAP) Pulse Ox O2 Delivery O2 Flow Rate FiO2 06/08/25 21:42 93 06/08/25 21:35 96 Departure 1 Departure Time of Disposition: 22:08 Impression: Primary Impression: Acute coronary syndrome Disposition: 09 ADMITTED INPATIENT Admit to: ICU Condition: Critical Discharged With: Self Comments 84-year-old male with extensive cardiac history and previous cardiac stents now with suspicious chest pain for last 2 days. EKG shows some borderline ST elevations in the inferior leads. Cardiology Dr. Calhoun was contacted and he wants to take the patient to the laboratory aide. Patient was given aspirin prior to arrival. Critical Care Note Critical Care Time?: Yes Critical care comment: Total critical care time: Approximately 36 minutes Due to a high probability of clinically significant, life threatening deterioration, the patient required my highest level of preparedness to intervene emergently and I personally spent this critical care time directly and personally managing the patient. This critical care time included obtaining a history; examining the patient; pulse oximetry; ordering and review of studies; arranging urgent treatment with development of a management plan; evaluation of patient's response to treatment; frequent reassessment; and, discussions with other providers. This critical care time was performed to assess and manage the high probability of imminent, life-threatening deterioration that could result in multi-organ failure. It was exclusive of separately billable procedures and treating other patients. Stability Stability form required: No Heart Score Heart Score: Heart Score Response (Comments) Value History Highly Suspicious [address]-Deviation 2 Age >65 2 Risk Factors >3 or Hx ASHD 2 Troponin 1-2 x's Normal limit 1 Total 9 I personally scribed for BALJINDER RODNEY MD ([email or web address]) on 06/08/25 at 22:07. Electronically submitted by Agusto Dela Cruz ([email or web address]). BALJINDER RODNEY MD Jun 08, 2025 22:07
[2025-06-08] MEDS: HEPARIN SODIUM (PORCINE) 5000 UNITS/ML 1ML VIAL IV ONE (22:17)
[2025-06-08] MEDS: HEPARIN SODIUM (PORCINE) 5000 UNITS/ML 1ML VIAL ONE (22:21)
[2025-06-08] MEDS: ANGIOMAX 250 MG VIAL IV ONE (22:27)
[2025-06-08] MEDS: fentaNYL CITRATE 100 MCG/2 ML VL ONE (22:28)
[2025-06-08] MEDS: SODIUM CHL 0.9% 50 ML ONE (22:28)
[2025-06-08] MEDS: MIDAZOLAM HCL 2MG/2ML 2ml VIAL (1mg/ml) ONE (22:28)
[2025-06-08] MEDS: LIDOCAINE 2%HCL (LOCAL ANESTH.) INJ 20ML MDV ONE (22:28)
[2025-06-08] MEDS: VERAPAMIL 2.5MG/ML INJ 2ML VIAL IV ONE (22:28)
[2025-06-08 22:30] LABS: Hematocrit 43.9 % (41.0-53.0); Hemoglobin 14.8 g/dL (13.5-17.5); Mean Corpuscular Hemoglobin 29.2 pg (28.0-32.0); Mean Corpuscular Volume 86.5 fL (80.0-100.0); Nucleated Red Blood Cells % 0.0 %
[2025-06-08] MEDS: IODIXANOL 320MG/ML 100ML BTL IV ONE (22:31)
--- NOTE | 2025-06-08 22:37 | DVH ---
CHEST RADIOGRAPH Indication: chest pain Technique: Single frontal view of the chest was obtained COMPARISON: XY CHEST PORTABLE on DOS: 11/15/23, XY CHEST TWO VIEWS ROUTINE on DOS: 09/20/23, XY CHEST PO RTABLE on DOS: 06/14/23, XY CHEST PORTABLE on DOS: 06/14/23, CT CHEST WITHOUT CONTRAST on DOS: 06/14/23 FINDINGS: Defibrillator pad overlying the right chest wall. Minimal left basilar atelectasis. Otherwise, lung and pleural spaces are clear. Cardiac silhouette an d hola are within normal limits. Bones and soft tissues demonstrate no significant abnormality. IMPRESSION: No acute disease.
--- NOTE | 2025-06-08 22:50 | DVHINCON2 ---
DATE OF CONSULTATION: 06/08/2025 CARDIOLOGY CONSULTATION REASON FOR CONSULTATION: STEMI. CONSULTING PHYSICIAN: Dr. Kevon Calhoun. REFERRING PHYSICIAN: ER. HISTORY OF PRESENT ILLNESS: The patient is an 84-year-old gentleman with history of multivessel PCI done. He has had an acute DE to his RCA and circumflex in the past. Most recently RCA PCI at this hospital about 2-3 years ago. Images independently reviewed by myself. Then the patient had an acute DE at [facility] this spring in 01/2025 with an LAD PCI which I independently had to review myself emergently during a STEMI call. The patient is noncompliant with his Plavix, taking it "infrequently" for unknown reasons. He has been coming in with chest pain for several hours, although it has now improved with the nitro. PAST MEDICAL HISTORY: As stated above. ALLERGIES: Reviewed. SOCIAL HISTORY: Noncontributory. PHYSICAL EXAMINATION: VITAL SIGNS: Heart rate is 100, respiratory rate is 15, blood pressure 151/91, setting 94%. GENERAL: The patient is an elderly male in no significant distress. HEAD: Normocephalic, atraumatic. ENT: Dry mucous membranes. NECK: Supple. CARDIOVASCULAR: S1, S2. Regular rate and rhythm. LUNGS: With scattered rhonchi. ABDOMEN: Soft and nontender. LOWER EXTREMITIES: No edema. PSYCHIATRIC: Oriented and appropriate. LABORATORY DATA: There are none. ASSESSMENT AND PLAN: * Acute inferior ST elevation myocardial infarction with EKG changes. * Medication noncompliance. 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 * Hypertension. * Hyperlipidemia. * Diabetes. * Tobacco. PLAN: At this point, the patient is at the highest possible risk for cardiovascular complications. After discussion of the risks, benefits, and alternatives of the procedure, he wished to proceed. I independently reviewed his cath films from 3 years ago at this hospital with an RCA PCI. In addition, I independently reviewed the report of his cath films from [facility]. The patient will be admitted to the ICU. Further recommendations will follow the patient's clinical course. 90 minutes of critical care time was spent. Kevon Calhoun MD CM/HODAN TID: [id number] RECEIPT: [id number]
[2025-06-08 22:52] LABS: INR 0.99 (0.9-1.15); Partial Thromboplastin Time 24.1 SEC (24.5-34.5); Prothrombin Time 10.5 sec (9.3-11.8)
[2025-06-08 22:53] LABS: Alanine Aminotransferase 34 U/L (7-40); Albumin 4.4 g/dL (3.2-4.8); Alkaline Phosphatase 83 U/L (46-116); Anion Gap 8 (5-15); BUN/Creatinine Ratio 18.9 (10.0-20.0); Blood Urea Nitrogen 21 mg/dL (9-23); Calcium 9.3 mg/dL (8.7-10.4); Carbon Dioxide 25 mmol/L (20-31); Chloride 106 mmol/L (98-107); Magnesium 2.0 mg/dL (1.6-2.6); Sodium 139 mmol/L (136-145); Total Protein 6.9 g/dL (5.7-8.2)
[2025-06-08] MEDS: NOREPINEPHRINE 8 MG/250ML KIT 0 ML IV ONE (22:53)
[2025-06-08 22:54] LABS: Bilirubin, Total 0.4 mg/dL (0.2-1.0)
[2025-06-08] MEDS ORDERED: DEXTROSE (50%) 50ML SYRG IV PRN (23:00)
[2025-06-08 23:02] LABS: Glucose 314 mg/dL (74-106); Potassium 5.2 mmol/L (3.5-5.1)
[2025-06-08] MEDS: ATROPINE SULF 1 MG/10ml SYR ONE (23:02)
[2025-06-08 23:15] LABS: Lactic Acid w/Reflex 2.2 mmol/L (0.4-2.0)
[2025-06-08] MEDS ORDERED: NITROGLYCERIN 0.4 MG SL TAB SL PRN ×2 (23:15→23:45)
[2025-06-08] MEDS ORDERED: MORPHINE SULFATE INJ 2 MG/ml SYRG IV PRN ×2 (23:15→23:45)
[2025-06-08 23:17] LABS: Triglycerides 90 mg/dL (< 150)
[2025-06-08 23:19] LABS: Cholesterol 145 mg/dL (< 200); HDL Cholesterol 58 mg/dL (40-59)
[2025-06-08] MEDS: CLOPIDOGREL BISULFATE 75 MG TAB ONE ×2 (23:38)
[2025-06-08] MEDS ORDERED: hydrALAZINE HCL 20 MG/ML VL IV PRN (23:45)
[2025-06-09] VITALS (68 sets, daily range): BP systolic 89–145; BP diastolic 44–89; PULSE 59–99; RESP 9–23; TEMP 97.7–98.8; O2SAT 92–100
[2025-06-09] MEDS: ACCU-CHEK COMFORT CURVE STRIP VI SCH
--- NOTE | 2025-06-09 00:14 | DVHOP ---
DATE OF SURGERY: 06/08/2025 PREOPERATIVE DIAGNOSIS: Acute inferior STEMI. POSTOPERATIVE DIAGNOSIS: Acute inferior STEMI. PROCEDURES PERFORMED: Selective coronary angiogram, conscious sedation administration and supervision less than 15 minutes, as well as 15-30 minutes fluoroscopy use and interpretation; ultrasound-guided vascular access saved to the PACS system; PTCA, single vessel; PCI, single vessel; acute NE intervention, single vessel, use of GuideLiner device. PROCEDURE IN DETAIL: The patient signed informed consent understanding the risks, benefits, and alternatives of procedure. He wished to proceed. The patient was brought to the microbiology lab technician in n.p.o. state. He was prepped in a sterile fashion. The patient is a noncompliant patient. He takes his dual antiplatelet therapy infrequently per the patient. The patient has had a stroke and has severe right arm pain and there was not an access from the radial artery. The patient did have a cath done at [facility] in 01/2025, which was also done via femoral approach. Therefore, we did plan for a femoral approach for this cath. I administered 5 mL of 2% lidocaine to his right groin after he was prepped in a sterile fashion. With ultrasound-guided access, I cannulated his right common femoral artery with one stick, saved to the PACS system and placed a 6-Dutch sheath. Ipsilateral angiogram was performed showing an appropriate arteriotomy site. Then I took a 6-Dutch JL4 and JR4 guide for angiogram. FINDINGS: * Left main: Long left main, moderate size, it is widely patent. * LAD: LAD in the proximal portion has a widely patent stent, previously deployed in 01/2025 at [place], which was a 2.75 stent. Diagonal 1 at the termination of that stent has about a 60-70% stenosis. The mid and distal LAD has mild to moderate diffuse plaque that is not critical. * Circumflex: Circumflex proximally is patent. It gives off a moderate-sized OM branch. This OM has a stent placed in the past that is widely patent. After the stent, there is a 70% stenosis in the distal OM that is small to moderate in size. * RCA: RCA is a large dominant vessel, proximally is patent with mild diffuse plaquing. The mid RCA has a previously placed stent in 2020 at [facility] and the mid to distal RCA has a 99% ruptured plaque with 100% RPL thrombus with PDA with diffuse disease. INTERVENTION: Over the JR4 guide, Angiomax bolus and drip had been initiated. I brought a 0.014 x 190 cm BMW wire and I crossed into the distal RCA. I took a 2.5 balloon, but it would not cross. Therefore, I decided to remove the balloon and I rewired using a loop technique using a Runthrough wire as there appeared to be difficulty getting any balloon down from that previously deployed stent in 2020. Over that loop technique with the Runthrough wire, I pulled out my BMW and I was able to bring that 2.5 balloon x 12 mm and performed balloon angioplasty up to 14 atmospheres with several inflations. Following this, we restored SARI 3 flow and the stenosis significantly improved. At this point, I tried to bring a 3.5 x 22 stent as well as a 3.5 x 15 stent, but it was not deliverable. Bringing a second wire down, a ChoICE PT extra support, still would not allow me to bring that stent down. I did expect that there may be a shelf plaque in that mid RCA previously placed stent. At this point, I took a GuideLiner device and I safely crossed into the distal RCA with that stent, 3.5 x 15, and I deployed it at 18 atmospheres with 2 separate inflations, each lasting 15 seconds. Then I removed my GuideLiner and I took my Runthrough wire into the RPL, which is a very small branch, probably 1-1.5 mm in size, and wired up into that lesion as there was still some previous thrombus within it distally. At this point, angiogram was performed showing 0% residual stenosis into the stent placed today. All guides and wires were removed. The patient was confused at times, but redirectable throughout the procedure. At this point, a 6-Dutch AngioSeal was used for closure. 600 mg of p.o. Plavix was administered as well. LVEDP was done using a pigtail and LVEDP was 13 mmHg. CONCLUSION: Successful PTCA and PCI of an acute inferior STEMI and placement of a drug-eluting stent. PLAN: * Dual antiplatelet therapy. * Reeducating the patient as he is extremely noncompliant. He has had multiple MIs in the last couple of years and he is a very high-risk patient in the future for cardiovascular . He needs to start taking his medication properly. Kevon Calhoun MD CM/CATHY TID: [id number] RECEIPT: [id number]
--- NOTE | 2025-06-09 00:23 | DVHHPRES ---
History of Present Illness Resident Creating Document: ADA NAVAS RESIDENT History of Present Illness Jan Bowers 84-year-old male patient who presents to the ED with chief complaint of retrosternal oppressive chest pain in Functional Class IV (he was sitting watching TV), intensity 10/10, which started 3 hours before his admission (approximately 6pm). Patient is clinical presentation has a same characteristics as when he had previous MIs (previously documented angina). Patient is noncompliant with his medication (per patient he can not open medication jars due to his residual hemiplegia). Denies dyspnea, palpitation, syncope or any other associated symptoms. EMS fold894 mg of aspirin, no nit roglycerin due to EKG showing inferior STEMI. 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 Surgical history: PCI x3, rotator cuff surgery x2, lumbar spine surgery x2 (six and three years ago) Family history: Heart disease in father Social history: Lives in [place] alone (he has home health nurses that assist every day). Next of kin is his daughter Thao Bowers. Ex tobacco abuse (five pack year history smoking) quit one year ago. Ex ethanol abuse since stroke. Denies current tobacco, alcohol and other drug abuse Allergies: Denies Home medication: Aspirin, clopidogrel, atorvastatin, carisoprodol, carvedilol, losartan, cyclobenzaprine, empagliflozin, hydrocodone, insulin glargine 50 units, meloxicam, metformin, prednisone, sertraline, tamsulosin, valacyclovir Patient seen and examined at bedside. Patient is getting prep to got to pathology laboratory aide. Currently his chest pain is 2/10 after medication. Past Medical History Per HPI Past Surgical History Per HPI Family History Per HPI Past Social History Per HPI Review of Systems Review of Systems Per HPI Allergies: Coded Allergies: NO KNOWN ALLERGIES (Unverified , 02/05/20) Medications Current Medications Medications Dose Ordered Sig/Emanuel Route Start Time Stop Time Status Last Admin Dose Admin Atorvastatin Calcium 40 mg HS PO 06/09/25 22:00 Carvedilol 3.125 mg BID PO 06/09/25 10:00 Empaglifozin 10 mg DAILY PO 06/09/25 10:00 Tamsulosin HCl 0.4 mg QPM PO 06/09/25 18:00 Losartan Potassium 100 mg DAILYPRN PO 06/09/25 10:00 Future Hold Aspirin 81 mg DAILY PO 06/09/25 10:00 Cancel Diagnostic Test (Pha) 1 strip Q6HR 06/09/25 00:00 Insulin Human Regular Q6HR SC 06/09/25 00:00 Dextrose 50 ml UD PRN IV 06/08/25 23:00 Nitroglycerin 0.4 mg Q5MINP PRN SL 06/08/25 23:15 Cancel Morphine Sulfate 2 mg Q30M PRN IV 06/08/25 23:15 Cancel Aspirin 81 mg DAILY PO 06/09/25 10:00 Clopidogrel Bisulfate 75 mg DAILY PO 06/09/25 10:00 Nitroglycerin 0.4 mg Q5MINP PRN SL 06/08/25 23:45 Morphine Sulfate 2 mg Q30M PRN IV 06/08/25 23:45 Hydralazine HCl 10 mg Q6HP PRN IV 06/08/25 23:45 Losartan Potassium 25 mg DAILY PO 06/09/25 10:00 UNV Exam Vital Signs Vital Signs Date Time Temp Pulse Resp B/P (MAP) Pulse Ox O2 Delivery O2 Flow Rate FiO2 06/08/25 22:07 96 06/08/25 22:05 16 96 Room Air* 0 21 06/08/25 22:05 97.4 164/100 (121) 97.4 Exam Patient lying in bed, in mild acute distress General: Lucid, afebrile, mucosae are moist Cardiovascular: Normal S1 and S2. No murmurs, gallops or rubs Respiratory: Normal ventilation mechanics. Clear lung sounds on auscultation Abdomen: Soft, nontender, no organomegaly, normal bowel sounds MSK/skin: Mobilizes 4 limbs. Skin is dry and warm Neurological: Oriented in 3 spheres. Right-sided mild hemiplegia, no other motor no sensitive deficits. Pupils are isocoric and reactive Labs/Xrays Labs Test 06/08/25 22:11 Range/Units White Blood Count 9.9 4.4-10.8 10^3/uL Red Blood Count 5.07 4.5-5.90 10^6/uL Hemoglobin 14.8 13.5-17.5 g/dL Hematocrit 43.9 41.0-53.0 % Mean Corpuscular Volume 86.5 80.0-100.0 fL Mean Corpuscular Hemoglobin 29.2 28.0-32.0 pg Mean Corpuscular Hemoglobin Concent 33.7 32.0-36.0 g/dL Red Cell Distribution Width 14.7 H 11.8-14.3 % Platelet Count 190 140-450 10^3/uL Mean Platelet Volume 8.4 6.9-10.8 fL Neutrophils (%) (Auto) 79.3 37.0-80.0 % Lymphocytes (%) (Auto) 13.3 10.0-50.0 % Monocytes (%) (Auto) 5.4 0.0-12.0 % Eosinophils (%) (Auto) 1.3 0.0-7.0 % Basophils (%) (Auto) 0.7 0.0-2.0 % Neutrophils # (Auto) 7.9 1.6-8.6 10 ^3/uL Lymphocytes # (Auto) 1.3 0.4-5.4 10 ^3/uL Monocytes # (Auto) 0.5 0-1.3 10 ^3/uL Eosinophils # (Auto) 0.1 0-0.8 10 ^3/uL Basophils # (Auto) 0.1 0-0.2 10 ^3/uL Nucleated Red Blood Cells 0.0 % Prothrombin Time 10.5 9.3-11.8 sec Prothrombin Time INR 0.99 0.9-1.15 Activated Partial Thromboplast Time 24.1 L 24.5-34.5 SEC Sodium Level 139 136-145 mmol/L Potassium Level 5.2 H 3.5-5.1 mmol/L Chloride Level 106 98-107 mmol/L Carbon Dioxide Level 25 20-31 mmol/L Anion Gap 8 5-15 Blood Urea Nitrogen 21 9-23 mg/dL Creatinine 1.11 0.700-1.30 mg/dL Glomerular Filtration Rate Calc 66 >90 mL/min BUN/Creatinine Ratio 18.9 10.0-20.0 Serum Glucose 314 H 74-106 mg/dL Lactic Acid Level 2.2 *H 0.4-2.0 mmol/L Calcium Level 9.3 8.7-10.4 mg/dL Phosphorus Level 2.6 2.4-5.1 mg/dL Magnesium Level 2.0 1.6-2.6 mg/dL Total Bilirubin 0.4 0.2-1.0 mg/dL Aspartate Amino Transferase (AST) 25 13-40 U/L Alanine Aminotransferase (ALT) 34 7-40 U/L Alkaline Phosphatase 83 46-116 U/L Troponin I High Sensitivity 28 </=54 ng/L B-Type Natriuretic Peptide 23.74 0-100 pg/mL Total Protein 6.9 5.7-8.2 g/dL Albumin 4.4 3.2-4.8 g/dL Triglycerides Level 90 < 150 mg/dL Cholesterol Level 145 < 200 mg/dL LDL Cholesterol 72 < 100 mg/dL HDL Cholesterol 58 40-59 mg/dL Thyroid Stimulating Hormone (TSH) 1.61 0.55-4.78 uIU/mL SEPSIS Sepsis Screen Date sepsis recognized/suspect: Jun 08, 2025 Time Sepsis recognized/suspect: 2211 Recent Procedure: No On Antibiotic Therapy: No Respiratory Rate >20: No Heart Rate >90: Yes Temp<36 C (96.8 F) or >38.3 C: No SBP <90 or MAP <65 mmHG: No New Acute Mental Status Change: No Is the patient on CPAP, BIPAP,: No Physician Orders Electrocardigram (06/08/25 21:54) Electrocardigram (06/08/25 22:54) Electrocardigram (06/09/25 00:54) Chest Portable (06/08/25 21:55) Centralized Traffic Control Operator (06/08/25 21:55) Cl Left Heart Cath (06/08/25 22:19) Atorvastatin (Lipitor) (06/09/25 22:00) Carvedilol Tablet (Coreg Tablet) (06/09/25 10:00) Empagliflozin (Jardiance) (06/09/25 10:00) Tamsulosin Hydrochloride (Flomax) (06/09/25 18:00) Losartan Tablet (Cozaar Tablet) (06/09/25 10:00) Complete Blood Count (06/09/25 04:00) Comprehensive Metabolic Panel (06/09/25 04:00) Vitamin D, 25-Hydroxy (06/08/25 22:23) Vitamin B12 (06/08/25 22:23) Urinalysis (06/08/25 22:23) Drug Screen (06/08/25 22:23) Echo 2d Mode Cardiac Dop (06/08/25 22:39) Glucose Blood (Accu-Chek Comfort Curve T (06/09/25 00:00) Insulin R (Human) (Insulin R) (06/09/25 00:00) Dextrose 50% Syringe (06/08/25 23:00) Admit (06/08/25 23:04) Oxygen By Nasal Cannula (06/08/25 23:04) Stat Ekg For Chest Pain (06/08/25 23:04) Notify Md Of Changes From Base (06/08/25 23:04) Geology Instructor For 24 Hours (06/08/25 23:04) Emergency Dysrhythmia Protocol (06/08/25 23:04) Rhythm Strips Once Every Shift (06/08/25 23:04) Aspirin Tablet (06/09/25 10:00) Clopidogrel Bisulfate (Plavix) (06/09/25 10:00) Admit (06/08/25 23:32) Nitroglycerin Sublingual (Ntrostat Subli (06/08/25 23:45) Morphine Sulfate Injection (06/08/25 23:45) Oxygen By Nasal Cannula (06/08/25 23:32) Hydralazine Injection (Apresoline Inject (06/08/25 23:45) Losartan Tablet (Cozaar Tablet) (06/09/25 10:00) Admit (06/09/25 00:19) Vital Signs Date Time Temp Pulse Resp B/P (MAP) Pulse Ox O2 Delivery O2 Flow Rate FiO2 06/08/25 22:07 96 06/08/25 22:05 97 16 96 Room Air* 0 21 06/08/25 22:05 97.4 97 16 164/100 (121) 96 97.4 06/08/25 22:04 98.4 101 15 151/91 94 98.4 06/08/25 21:42 93 06/08/25 21:35 96 Laboratory Tests Test 06/08/25 22:11 Lactic Acid Level 2.2 mmol/L (0.4-2.0) *H White Blood Count 9.9 10^3/uL (4.4-10.8) Medications Medications Dose Ordered Sig/Emanuel Route Start Time Stop Time Status Last Admin Dose Admin Bivalirudin 250 mg STK-MED ONCE IV 06/08/25 22:27 06/08/25 22:24 DC 06/08/25 22:27 250 MG Clopidogrel Bisulfate 300 mg STK-MED ONCE .ROUTE 06/08/25 23:27 06/08/25 23:23 DC 06/08/25 23:38 300 MG Clopidogrel Bisulfate 300 mg STK-MED ONCE .ROUTE 06/08/25 23:27 06/08/25 23:24 DC 06/08/25 23:38 300 MG Fentanyl Citrate 100 mcg STK-MED ONCE .ROUTE 06/08/25 22:28 06/08/25 22:24 DC 06/08/25 22:28 75 MCG Heparin Sodium (Porcine) 3,000 units ONCE ONCE IV 06/08/25 22:15 06/08/25 22:16 DC 06/08/25 22:17 3,000 UNITS Iodixanol 64,000 mg STK-MED ONCE IV 06/08/25 22:31 06/08/25 22:27 DC 06/08/25 22:31 32,000 MG Midazolam HCl 2 mg STK-MED ONCE .ROUTE 06/08/25 22:28 06/08/25 22:24 DC 06/08/25 22:28 1.5 MG Sodium Chloride 50 ml @ ud STK-MED ONCE .ROUTE 06/08/25 22:28 06/08/25 22:24 DC 06/08/25 22:28 50 MLS/HR Assessment/Plan Assessment/Plan Inferior STEMI (Edgardoip Kalani Delacruz Patient delay 3 hours, pending door balloon and total ischemia time) Coronary artery disease status post multiple PCI History of CVA with residual right hemiplegia Chronic diastolic congestive heart failure (LVEF 65% on 2023), no exacerbation EKG shows sinus rhythm with inferior ST-elevation Code STEMI was called. Loaded patient with [id number] mg in EMS. On atorvastatin 40 mg daily, gave IV bolus of heparin. Preparing patient to go to pathology laboratory aide. Ordered serial troponin, pending Continue home medication (empagliflozin, carvedilol, losartan). Avoid nitroglycerin due to inferior ST-elevation Ordered new echocardiogram Hypertension Dyslipidemia Diabetes Continued home medication (except diabetic medication) On insulin sliding scale Gave her advice on healthy lifestyle habits BPH Continue tamsulosin Noncompliance Talked about risks of noncompliance to DAPT, including restenosis and sudden ca rdiac . Patient understands. Patient describes his barrier on treatment is not being able to open jars and medicine, have discussed that home health nurses should organizes pills so he would not have to open any jar to get his medication Goals of care discussed with patient for over18 minutes: Full code status Discussed plan with Dr. Amador, patient and nurses: Code STEMI was called, planning on taking patient to pathology laboratory aide. Patient is noncompliant with DAPT, have explained extensively risk of noncompliance, which is includes stent thrombosis, restenosis and sudden cardiac . Patient agreed on going to pathology laboratory aide for coronary angiography. Patient has poor prognosis Plan discussed with: Patient, Other (Nurses) My Orders Orders - ADA NAVAS Procedure Category Date Status Time Atorvastatin (Lipitor) PHA 06/09/25 In Process 22:00 Carvedilol Tablet PHA 06/09/25 In Process (Coreg Tablet) 10:00 Empagliflozin PHA 06/09/25 In Process (Jardiance) 10:00 Tamsulosin PHA 06/09/25 In Process Hydrochloride (Flomax) 18:00 Losartan Tablet PHA 06/09/25 In Process (Cozaar Tablet) 10:00 Complete Blood Count LAB 06/09/25 Logged 04:00 Comprehensive LAB 06/09/25 Logged Metabolic Panel 04:00 Vitamin D, 25-Hydroxy LAB 06/08/25 In Process 22:23 Vitamin B12 LAB 06/08/25 In Process 22:23 Urinalysis LAB 06/08/25 Logged 22:23 Drug Screen LAB 06/08/25 Logged 22:23 Echo 2d Mode Cardiac US 06/08/25 Logged DOP 22:39 Glucose Blood PHA 06/09/25 In Process (Accu-Chek Comfort 00:00 Insulin R (Human) PHA 06/09/25 In Process (Insulin R) 00:00 Dextrose 50% Syringe PHA 06/08/25 In Process 23:00 Admit ADMIT 06/09/25 Verified 00:19 Date of Service: Jun 09, 2025 Billing Provider: VINICIUS GIRON MD Common Visit Codes: [id number] INP/OBS CARE (HIGH) Secondary Visit Codes: [id number] CARE PLAN 30 MINUTES ADA NAVAS Jun 09, 2025 00:23
[2025-06-09] MEDS ORDERED: MORPHINE SULFATE INJ 2 MG/ml SYRG IV PRN (00:30)
[2025-06-09] MEDS ORDERED: ONDANSETRON HCL 4 MG/2 ML VIAL IV PRN (00:30)
[2025-06-09] MEDS ORDERED: ACETAMINOPHEN 325 MG TAB PO PRN (00:30)
[2025-06-09] MEDS: InsuLIN REG 1unit/0.01ml Soln (100units/ml) SC SCH (02:05)
[2025-06-09 06:10] LABS: Hematocrit 39.5 % (41.0-53.0); Hemoglobin 13.7 g/dL (13.5-17.5); Mean Corpuscular Hemoglobin 30.0 pg (28.0-32.0); Mean Corpuscular Volume 86.3 fL (80.0-100.0); Nucleated Red Blood Cells % 0.1 %
[2025-06-09 06:23] LABS: Alanine Aminotransferase 25 U/L (7-40); Albumin 3.8 g/dL (3.2-4.8); Alkaline Phosphatase 71 U/L (46-116); Anion Gap 7 (5-15); BUN/Creatinine Ratio 18.7 (10.0-20.0); Blood Urea Nitrogen 17 mg/dL (9-23); Calcium 8.9 mg/dL (8.7-10.4); Carbon Dioxide 23 mmol/L (20-31); Potassium 4.4 mmol/L (3.5-5.1); Sodium 140 mmol/L (136-145); Total Protein 6.0 g/dL (5.7-8.2)
[2025-06-09 06:24] LABS: Bilirubin, Total 0.4 mg/dL (0.2-1.0)
[2025-06-09 06:27] LABS: Chloride 110 mmol/L (98-107); Glucose 190 mg/dL (74-106)
--- NOTE | 2025-06-09 06:29 | ECG ---
[facility] Test Date: 2025-06-08 Test Time: 21:35:11 Pat Name: SARA LAYTON Department: [facility] ED Patient ID: [facility]-[id number] Room: 0221T Gender: M Research And Development Researcher: MATILDA : 1940 Requested By: BALJINDER RODNEY Order Number: [id number] Reading MD: Luis Alberto Gastelum Measurements Intervals [place] Rate: 96 P: 56 MT: 229 QRS: 138 QRSD: 104 T: 84 QT: 339 QTc: 429 Interpretive Statements Sinus rhythm Prolonged MT interval Inferior infarct, acute (RCA) Lateral leads are also involved Probable RV involvement, suggest recording right precordial leads Electronically Signed On 06-12-2025 22:03:34 PDT by Luis Alberto Gastelum Please click the below link to view image of tracing.
--- NOTE | 2025-06-09 06:29 | ECG ---
[facility] Test Date: 2025-06-08 Test Time: 21:42:39 Pat Name: SARA LAYTON Department: [facility] ED Patient ID: [facility]-[id number] Room: 0221T Gender: M Conduit Helper: MATILDA : 1940 Requested By: BALJINDER RODNEY Order Number: [id number] Reading MD: Luis Alberto Gastelum Measurements Intervals [place] Rate: 93 P: 59 NC: 231 QRS: 111 QRSD: 107 T: 79 QT: 350 QTc: 436 Interpretive Statements Sinus rhythm Prolonged NC interval Inferior infarct, acute (RCA) Probable RV involvement, suggest recording right precordial leads Electronically Signed On 06-12-2025 22:03:48 PDT by Luis Alberto Gastelum Please click the below link to view image of tracing.
[2025-06-09] MEDS ORDERED: LOSARTAN POTASSIUM 50 MG TAB PO SCH (10:00)
[2025-06-09] MEDS: CLOPIDOGREL BISULFATE 75 MG TAB PO SCH (10:11)
[2025-06-09] MEDS: EMPAGLIFLOZIN 10 MG TAB PO SCH (10:11)
[2025-06-09] MEDS: CARVEDILOL 3.125 MG TAB PO SCH (10:14)
[2025-06-09] MEDS: LOSARTAN POTASSIUM 25 MG TAB PO SCH (10:14)
--- NOTE | 2025-06-09 12:52 | DVHPNRES ---
Progress Note Date Seen: Jun 09, 2025 Resident Creating Document: LINA HARVEY RESIDENT Medical Necessity Reason Pt with a Central, PICC or Fol: No Subjective Review of Systems Jan Bowers 84-year-old male patient who presents to the ED with chief complaint of retrosternal oppressive chest pain in Functional Class IV (he was sitting watching TV), intensity 10/10, which started 3 hours before his admission (approximately 6pm). Patient is clinical presentation has a same characteristics as when he had previous MIs (previously documented angina). Patient is noncompliant with his medication (per patient he can not open medication jars due to his residual hemiplegia). Denies dyspnea, palpitation, syncope or any other associated symptoms. EMS [id number] mg of aspirin, no nitroglycerin due to EKG showing inferior STEMI. 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 Surgical history: PCI x3, rotator cuff surgery x2, lumbar spine surgery x2 (six and three years ago) Family history: Heart disease in father Social history: Lives in [place] alone (he has home health nurses that assist every day). Next of kin is his daughter Thao Bowers. Ex tobacco abuse (five pack year history smoking) quit one year ago. Ex ethanol abuse since stroke. Denies current tobacco, alcohol and other drug abuse Allergies: Denies Home medication: Aspirin, clopidogrel, atorvastatin, carisoprodol, carvedilol, losartan, cyclobenzaprine, empagliflozin, hydrocodone, insulin glargine 50 units, meloxicam, metformin, prednisone, sertraline, tamsulosin, valacyclovir Patient is seen today at bedside, labs and chart reviewed. Vitals stable placed patient denied acute chest pain. Status post PCI to RCA. Patient is on antiplatelet aspirin and clopidogrel. Patient is being transferred to telemetry. Objective vital signs Vital Sign Date Time Temp Pulse Resp B/P (MAP) Pulse Ox O2 Delivery O2 Flow Rate FiO2 06/09/25 12:15 68 14 90/51 (64) 96 06/09/25 08:00 Room Air* 0 21 06/09/25 04:00 97.8 97.8 Total Intake and Output 06/08/25 06/08/25 06/09/25 15:00 23:00 07:00 Intake Total 100 ml Output Total 450 ml Balance -350 ml medications Current Medications Medications Dose Ordered Sig/Emanuel Route Start Time Stop Time Status Last Admin Dose Admin Atorvastatin Calcium 40 mg HS PO 06/09/25 22:00 Carvedilol 3.125 mg BID PO 06/09/25 10:00 06/09/25 10:14 3.125 MG Empaglifozin 10 mg DAILY PO 06/09/25 10:00 06/09/25 10:11 10 MG Tamsulosin HCl 0.4 mg QPM PO 06/09/25 18:00 Aspirin 81 mg DAILY PO 06/09/25 10:00 Cancel Diagnostic Test (Pha) 1 strip Q6HR 06/09/25 00:00 06/09/25 00:00 1 STRIP Insulin Human Regular Q6HR SC 06/09/25 00:00 06/09/25 06:00 3 UNITS Dextrose 50 ml UD PRN IV 06/08/25 23:00 Nitroglycerin 0.4 mg Q5MINP PRN SL 06/08/25 23:15 Cancel Morphine Sulfate 2 mg Q30M PRN IV 06/08/25 23:15 Cancel Aspirin 81 mg DAILY PO 06/09/25 10:00 06/09/25 10:18 81 MG Clopidogrel Bisulfate 75 mg DAILY PO 06/09/25 10:00 06/09/25 10:11 75 MG Nitroglycerin 0.4 mg Q5MINP PRN SL 06/08/25 23:45 Morphine Sulfate 2 mg Q30M PRN IV 06/08/25 23:45 Hydralazine HCl 10 mg Q6HP PRN IV 06/08/25 23:45 Losartan Potassium 25 mg DAILY PO 06/09/25 10:00 06/09/25 10:14 25 MG Acetaminophen 325 mg Q4HP PRN PO 06/09/25 00:30 Ondansetron HCl 4 mg Q4HP PRN IV 06/09/25 00:30 Morphine Sulfate 2 mg Q4HPRN PRN IV 06/09/25 00:30 Examination General: Lucid, afebrile, mucosae are moist Cardiovascular: Normal S1 and S2. No murmurs, gallops or rubs Respiratory: Normal ventilation mechanics. Clear lung sounds on auscultation Abdomen: Soft, nontender, no organomegaly, normal bowel sounds MSK/skin: Mobilizes 4 limbs. Skin is dry and warm Neurological: Oriented in 3 spheres. Right-sided mild hemiparesis, no other motor no sensitive deficits. Pupils are isocoric and reactive laboratory and microbiology Laboratory Tests 06/09/25 05:24 Test 06/09/25 05:24 Range/Units Serum Glucose 190 #H 74-106 mg/dL Problem List/Assessment/Plan Problem List/Assessment/Plan Assessment/Plan # Acute Inferior STEMI #Coronary artery disease status post multiple PCI #History of CVA with residual right hemiparesis #Chronic diastolic congestive heart failure (previous echo 2D LVEF 65% on 2023), no exacerbation EKG shows sinus rhythm with inferior ST-elevation -status post PTCA, status post Successful PTCA and PCI of an acute inferior STEMI and placement of a drug-eluting stent. -encouraged the patient about med adherence -aspirin 81 mg p.o. daily -clopidogrel 75 mg p.o. daily -carvedilol 3.125 mg p.o. b.i.d. -Jardiance 10 mg p.o. daily -atorvastatin 40 mg p.o. q.h.s. Losartan 25 mg p.o. daily -Echo 2D -pending echo 2D #Hypertension #Dyslipidemia --carvedilol 3.125 mg p.o. b.i.d. -atorvastatin 40 mg p.o. q.h.s. -Losartan 25 mg p.o. daily -monitor blood pressure # lactic acidosis resolved -continue monitoring clinically #Diabetes mellitus type 2 -continue insulin as prescribed BPH -Continue tamsulosin #Noncompliance Talked about risks of noncompliance to DAPT, including restenosis and sudden cardiac . Patient understands. Goals of care, Code status full code ; discussed with >15 minutes PUD prophylaxis: Pantoprazole DVT prophylaxis: Lovenox Plan discussed with Dr. Finley , nursing staff, Total time spent on patient evaluation, chart review, assessment and plan, discussion discussion >35 minutes Plan discussed with: Patient, Other (RN) My Orders My Orders Orders - LINA HARVEY RESIDENT Procedure Category Date Status Time 2 Gm Sodium Diet DIET 06/09/25 Transmitted Lunch Consistent DIET 06/09/25 Transmitted Carb(Ccho)Diabetes Lunch Date of Service: Jun 09, 2025 Billing Provider: JUAN FINLEY MD Common Visit Codes: [id number] INP/OBS CARE(HIGH) LINA HARVEY RESIDENT Jun 09, 2025 12:52 JUAN FINLEY MD Jun 12, 2025 00:04
[2025-06-09] MEDS: PANTOPRAZOLE 40 MG TAB PO SCH (15:16)
--- NOTE | 2025-06-09 15:39 | DVHPN2 ---
Progress Note Date Seen: Jun 09, 2025 Medical Necessity Reason Pt with a Central, PICC or Fol: No Subjective Patient reports: Feels better Objective vital signs Vital Sign Date Time Temp Pulse Resp B/P (MAP) Pulse Ox O2 Delivery O2 Flow Rate FiO2 06/09/25 15:15 74 16 97 06/09/25 08:00 Room Air* 0 21 06/09/25 04:00 97.8 97.8 Total Intake and Output 06/08/25 06/08/25 06/09/25 15:00 23:00 07:00 Intake Total 100 ml Output Total 450 ml Balance -350 ml medications Current Medications Medications Dose Ordered Sig/Emanuel Route Start Time Stop Time Status Last Admin Dose Admin Atorvastatin Calcium 40 mg HS PO 06/09/25 22:00 Carvedilol 3.125 mg BID PO 06/09/25 10:00 06/09/25 10:14 3.125 MG Empaglifozin 10 mg DAILY PO 06/09/25 10:00 06/09/25 10:11 10 MG Tamsulosin HCl 0.4 mg QPM PO 06/09/25 18:00 Aspirin 81 mg DAILY PO 06/09/25 10:00 Cancel Diagnostic Test (Pha) 1 strip Q6HR 06/09/25 00:00 06/09/25 13:05 1 STRIP Insulin Human Regular Q6HR SC 06/09/25 00:00 06/09/25 12:00 3 UNITS Dextrose 50 ml UD PRN IV 06/08/25 23:00 Nitroglycerin 0.4 mg Q5MINP PRN SL 06/08/25 23:15 Cancel Morphine Sulfate 2 mg Q30M PRN IV 06/08/25 23:15 Cancel Aspirin 81 mg DAILY PO 06/09/25 10:00 06/09/25 10:18 81 MG Clopidogrel Bisulfate 75 mg DAILY PO 06/09/25 10:00 06/09/25 10:11 75 MG Nitroglycerin 0.4 mg Q5MINP PRN SL 06/08/25 23:45 Morphine Sulfate 2 mg Q30M PRN IV 06/08/25 23:45 Hydralazine HCl 10 mg Q6HP PRN IV 06/08/25 23:45 Losartan Potassium 25 mg DAILY PO 06/09/25 10:00 06/09/25 10:14 25 MG Acetaminophen 325 mg Q4HP PRN PO 06/09/25 00:30 Ondansetron HCl 4 mg Q4HP PRN IV 06/09/25 00:30 Morphine Sulfate 2 mg Q4HPRN PRN IV 06/09/25 00:30 Enoxaparin Sodium 40 mg DAILY SC 06/10/25 10:00 Pantoprazole Sodium 40 mg DAILY@0600 PO 06/09/25 13:00 06/09/25 15:16 40 MG Examination: GENERAL:Abnormal, HEENT:Abnormal, LUNGS:Abnormal, CVS:Abnormal, ABDOMEN:Abnormal laboratory and microbiology Laboratory Tests 06/09/25 05:24 Test 06/09/25 05:24 Range/Units Serum Glucose 190 #H 74-106 mg/dL Problem List/Assessment/Plan Problem List/Assessment/Plan stemi med non compliance tobacco htn hl s/p pci to rca cont dapt pt seen with RN, advised by missing plavix wll result in possible cv , pt continues to have NE/stemis yearly 2/2 to not taking meds and hand problems needs better social support sttatin 40 mins critical care time spent fu echo Plan discussed with: Patient My Orders My Orders Orders - CM BEAULIEU MD Procedure Category Date Status Time Cl Left Heart Cath CL 06/08/25 Taken 22:19 Admit ADMIT 06/08/25 Transmitted 23:04 Oxygen By Nasal RT 06/08/25 Transmitted Cannula 23:04 Stat Ekg For Chest [facility] 06/08/25 In Process Pain 23:04 Notify Of Changes [facility] 06/08/25 In Process From Base 23:04 Siderographer For [facility] 06/08/25 In Process 24 Hours 23:04 Emergency Dysrhythmia [facility] 06/08/25 In Process Protocol 23:04 Rhythm Strips Once [facility] 06/08/25 In Process Every Shift 23:04 Aspirin Tablet [facility] 06/09/25 In Process 10:00 Clopidogrel Bisulfate PHA 06/09/25 In Process (Plavix) 10:00 Admit ADMIT 06/08/25 Transmitted 23:32 Nitroglycerin [facility] 06/08/25 In Process Sublingual (Ntrostat 23:45 Morphine Sulfate PHA 06/08/25 In Process Injection 23:45 Oxygen By Nasal RT 06/08/25 Transmitted Cannula 23:32 Hydralazine Injection PHA 06/08/25 In Process (Apresoline Inject 23:45 Losartan Tablet PHA 06/09/25 In Process (Cozaar Tablet) 10:00 Mrsa Screen JUDY 06/09/25 In Process 00:30 Date of Service: Jun 09, 2025 Billing Provider: CM BEAULIEU MD Common Visit Codes: NOT BILLABLE CM BEAULIEU MD Jun 09, 2025 15:39
--- NOTE | 2025-06-09 16:30 | DVHSR ---
APPROVED REPORT EXAM: Two-dimensional and M-mode echocardiogram with Doppler and color Doppler. Blood Pressure: 103/54 mmHg INDICATION STEMI RISK FACTORS Height: 70, Weight: 176 DIMENSIONS LVDd3.9 (3.8-5.7cm)LA (2D)3.7 (1.9-4.0cm)Aortic Root4.1 (2.0-3.7cm) LVDs2.5 (2.5-4.0cm)LA (MM) (1.9-4.0cm)Aortic Cusp Exc2.2 (1.5-2.0cm) EF (%) 67.0 (55-70%)Rt. Atrium3.8 (1.9-4.0cm)Asc. Aorta cm Mitral Valve MitralMitral Stenosis E wave0.60m/sMV Mean GR.mmHg A wave0.69m/sMV Peak GR.54mmHg E/A ratio0.92D MVAcm2 DECEL [id number] 1/2 Przc68rh IVRTmsDop MVA2.61cm2 Aortic Valve Aortic ValveAortic Stenosis V10.92m/Katharine Mean GR.2mmHg V20.92m/Katharine Peak GR.3mmHg LVOT Diameter2.0 (1.8-2.4cm)Doppler AVA3.14cm2 Pulmonic Valve V20.75m/s Tricuspid Valve TR Velocity2.00m/s [id number] Conclusion lvef 55% by visual estimate mild LVH normal RV function, mild enlarged left atrium enlarged mild
[2025-06-09] MEDS: TAMSULOSIN HYDROCHLORIDE 0.4 MG CAP PO SCH (18:07)
[2025-06-09] MEDS: ATORVASTATIN 20 MG TAB PO SCH (21:40)
[2025-06-10] VITALS: PULSE 83
[2025-06-10 01:00] VITALS: BP 103/77; PULSE 83; RESP 17; TEMP 98.5; O2SAT 96
[2025-06-10 04:00] VITALS: PULSE 70
[2025-06-10 05:00] VITALS: BP 97/59; PULSE 76; RESP 18; TEMP 98.7
[2025-06-10 08:00] VITALS: PULSE 68; PULSE 73; RESP 18; O2SAT 93
[2025-06-10 09:22] LABS: Hematocrit 40.7 % (41.0-53.0); Hemoglobin 13.7 g/dL (13.5-17.5); Mean Corpuscular Hemoglobin 29.6 pg (28.0-32.0); Mean Corpuscular Volume 87.7 fL (80.0-100.0); Nucleated Red Blood Cells % 0.2 %
[2025-06-10] MEDS: ENOXAPARIN SOD 40 MG/0.4 ML SYRINGE SC SCH (09:32)
[2025-06-10 09:46] LABS: Alanine Aminotransferase 23 U/L (7-40); Alkaline Phosphatase 71 U/L (46-116); Anion Gap 10 (5-15); BUN/Creatinine Ratio 13.8 (10.0-20.0); Blood Urea Nitrogen 16 mg/dL (9-23); Carbon Dioxide 20 mmol/L (20-31); Magnesium 2.1 mg/dL (1.6-2.6); Potassium 4.5 mmol/L (3.5-5.1); Sodium 140 mmol/L (136-145); Total Protein 5.9 g/dL (5.7-8.2)
[2025-06-10 09:47] LABS: Albumin 3.6 g/dL (3.2-4.8); Bilirubin, Total 0.5 mg/dL (0.2-1.0); Calcium 8.6 mg/dL (8.7-10.4); Chloride 110 mmol/L (98-107); Glucose 168 mg/dL (74-106)
--- NOTE | 2025-06-10 13:24 | DVHDSRES ---
Discharge Summary Date of Admission Resident Creating Document: VLADIMIR LAND RESIDENT Jun 08, 2025 at 23:04 Date of Discharge: Jun 10, [address]-elevation NC Labs/Diagnostic Data: Laboratory Results Test 06/10/25 11:36 06/10/25 08:47 06/09/25 00:40 06/08/25 22:11 POC Glucose 145 mg/dl (70-106) White Blood Count 8.3 10^3/uL (4.4-10.8) Red Blood Count 4.64 10^6/uL (4.5-5.90) Hemoglobin 13.7 g/dL (13.5-17.5) Hematocrit 40.7 % (41.0-53.0) Mean Corpuscular Volume 87.7 fL (80.0-100.0) Mean Corpuscular Hemoglobin 29.6 pg (28.0-32.0) Mean Corpuscular Hemoglobin Concent 33.8 g/dL (32.0-36.0) Red Cell Distribution Width 14.8 % (11.8-14.3) Platelet Count 203 10^3/uL (140-450) Mean Platelet Volume 7.9 fL (6.9-10.8) Neutrophils (%) (Auto) 72.7 % (37.0-80.0) Lymphocytes (%) (Auto) 17.4 % (10.0-50.0) Monocytes (%) (Auto) 6.8 % (0.0-12.0) Eosinophils (%) (Auto) 2.3 % (0.0-7.0) Basophils (%) (Auto) 0.8 % (0.0-2.0) Neutrophils # (Auto) 6.0 10 ^3/uL (1.6-8.6) Lymphocytes # (Auto) 1.4 10 ^3/uL (0.4-5.4) Monocytes # (Auto) 0.6 10 ^3/uL (0-1.3) Eosinophils # (Auto) 0.2 10 ^3/uL (0-0.8) Basophils # (Auto) 0.1 10 ^3/uL (0-0.2) Nucleated Red Blood Cells 0.2 % Sodium Level 140 mmol/L (136-145) Potassium Level 4.5 mmol/L (3.5-5.1) Chloride Level 110 mmol/L (98-107) Carbon Dioxide Level 20 mmol/L (20-31) Anion Gap 10 (5-15) Blood Urea Nitrogen 16 mg/dL (9-23) Creatinine 1.16 mg/dL (0.700-1.30) Glomerular Filtration Rate Calc 63 mL/min (>90) BUN/Creatinine Ratio 13.8 (10.0-20.0) Serum Glucose 168 mg/dL (74-106) Calcium Level 8.6 mg/dL (8.7-10.4) Magnesium Level 2.1 mg/dL (1.6-2.6) Total Bilirubin 0.5 mg/dL (0.2-1.0) Aspartate Amino Transferase (AST) 38 U/L (13-40) Alanine Aminotransferase (ALT) 23 U/L (7-40) Alkaline Phosphatase 71 U/L (46-116) Total Protein 5.9 g/dL (5.7-8.2) Albumin 3.6 g/dL (3.2-4.8) Lactic Acid Level 1.7 mmol/L (0.4-2.0) Prothrombin Time 10.5 sec (9.3-11.8) Prothrombin Time INR 0.99 (0.9-1.15) Activated Partial Thromboplast Time 24.1 SEC (24.5-34.5) Phosphorus Level 2.6 mg/dL (2.4-5.1) Troponin I High Sensitivity 28 ng/L (</=54) B-Type Natriuretic Peptide 23.74 pg/mL (0-100) Triglycerides Level 90 mg/dL (< 150) Cholesterol Level 145 mg/dL (< 200) LDL Cholesterol 72 mg/dL (< 100) HDL Cholesterol 58 mg/dL (40-59) Vitamin B12 Level 513 pg/mL (211-911) Vitamin D 25-Hydroxy 36.2 ng/mL (30.0-100) Thyroid Stimulating Hormone (TSH) 1.61 uIU/mL (0.55-4.78) Other Laboratory Tests 06/10/25 08:47 Brief Hx & Hospital Course: Jan Bowers 84-year-old male patient who presents to the ED with chief complaint of retrosternal oppressive chest pain in Functional Class IV (he was sitting watching TV), intensity 10/10, which started 3 hours before his admission (approximately 6pm). Patient is clinical presentation has a same characteristics as when he had previous MIs (previously documented angina). Patient is noncompliant with his medication (per patient he can not open medication jars due to his residual hemiplegia). Denies dyspnea, palpitation, syncope or any other associated symptoms. EMS [id number] mg of aspirin, no nitroglycerin due to EKG showing inferior STEMI. 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 Surgical history: PCI x3, rotator cuff surgery x2, lumbar spine surgery x2 (six and three years ago) Family history: Heart disease in father Social history: Lives in [place] alone (he has home health nurses that assist every day). Next of kin is his daughter Thao Bowers. Ex tobacco abuse (five pack year history smoking) quit one year ago. Ex ethanol abuse since stroke. Denies current tobacco, alcohol and other drug abuse Allergies: Denies Home medication: Aspirin, clopidogrel, atorvastatin, carisoprodol, carvedilol, losartan, cyclobenzaprine, empagliflozin, hydrocodone, insulin glargine 50 units, meloxicam, metformin, prednisone, sertraline, tamsulosin, valacyclovir Brief history of hospitalization Patient came in with chest pain and as per history patient was noncompliant with his medication. He showed sinus rhythm with inferior ST-elevation and patient underwent successful PTCA and PCI of an acute inferior STEMI with placement of drug-eluting stent. We gave the patient aspirin, clopidogrel, carvedilol, Jardiance, atorvastatin, losartan during his hospitalization. Echo was done which showed ejection fraction of 55%, mild LVH, mild enlarged right ventricle and left atrium enlarged mildly. Patient has been counseled regarding the importance of adherence of medication and patient communicated understanding. We continued insulin for type 2 diabetes mellitus and tamsulosin for his BPH. We are resuming patient's home hospice with medicine management so that the patient we will be able to adhere strictly to the medicines must take. Patient is now stable for discharge and he has agreed to the discharge plan. General: Lucid, afebrile, mucosae are moist Cardiovascular: Normal S1 and S2. No murmurs, gallops or rubs Respiratory: Normal ventilation mechanics. Clear lung sounds on auscultation Abdomen: Soft, nontender, no organomegaly, normal bowel sounds MSK/skin: Mobilizes 4 limbs. Skin is dry and warm Neurological: Oriented in 3 spheres. Right-sided mild hemiparesis, no other motor no sensitive deficits. Pupils are isocoric and reactive laboratory and microbiology Operations or Procedures CHEST RADIOGRAPH Indication: chest pain IMPRESSION: No acute disease. ORDERING PHYSICIAN: ADA NAVAS RESIDENT PROCEDURE(s): [facility]ID[facility] - ECHO 2D MODE CARDIAC DOP REASON: STEMI ORDER NUMBER(s): [id number], ACCESSION NUMBER(s): [id number] APPROVED REPORT EXAM: Two-dimensional and M-mode echocardiogram with Doppler and color Doppler. Blood Pressure: 103/54 mmHg INDICATION STEMI RISK FACTORS Height: 70, Weight: 176 DIMENSIONS LVDd 3.9 (3.8-5.7cm) LA (2D) 3.7 (1.9-4.0cm) Aortic Root 4.1 (2.0- 3.7cm) LVDs 2.5 (2.5-4.0cm) LA (MM) (1.9-4.0cm) Aortic Cusp Exc 2.2 (1.5- 2.0cm) EF (%) 67.0 (55-70%) Rt. Atrium 3.8 (1.9-4.0cm) Asc. Aorta cm Mitral Valve Mitral Mitral Stenosis E wave 0.60m/s MV Mean GR. mmHg A wave 0.69m/s MV Peak GR. 54mmHg E/A ratio 0.9 2D MVA cm2 DECEL Time 310ms PRESS 1/2 Time 84ms IVRT ms Dop MVA 2.61cm2 Aortic Valve Aortic Valve Aortic Stenosis V1 0.92m/s AO Mean GR. 2mmHg V2 0.92m/s AO Peak GR. 3mmHg LVOT Diameter 2.0 (1.8-2.4cm) Doppler LEIDA 3.14cm2 Pulmonic Valve V2 0.75m/s Tricuspid Valve TR Velocity 2.00m/s RVSP 19mmHg Conclusion lvef 55% by visual estimate mild LVH normal RV function, mild enlarged left atrium enlarged mild SIGNED BY: KEVON BEAULIEU MD SIGNED DATE/TIME: 06/09/25 1630 DATE OF SURGERY: 06/08/2025 PREOPERATIVE DIAGNOSIS: Acute inferior STEMI. POSTOPERATIVE DIAGNOSIS: Acute inferior STEMI. PROCEDURES PERFORMED: Selective coronary angiogram, conscious sedation administration and supervision less than 15 minutes, as well as 15-30 minutes fluoroscopy use and interpretation; ultrasound-guided vascular access saved to the PACS system; PTCA, single vessel; PCI, single vessel; acute NC intervention, single vessel, use of GuideLiner device. PROCEDURE IN DETAIL: The patient signed informed consent understanding the risks, benefits, and alternatives of procedure. He wished to proceed. The patient was brought to the cathead operator in n.p.o. state. He was prepped in a sterile fashion. The patient is a noncompliant patient. He takes his dual antiplatelet therapy infrequently per the patient. The patient has had a stroke and has severe right arm pain and there was not an access from the radial artery. The patient did have a cath done at [facility] in 01/2025, which was also done via femoral approach. Therefore, we did plan for a femoral approach for this cath. I administered 5 mL of 2% lidocaine to his right groin after he was prepped in a sterile fashion. With ultrasound-guided access, I cannulated his right common femoral artery with one stick, saved to the PACS system and placed a 6-South African sheath. Ipsilateral angiogram was performed showing an appropriate arteriotomy site. Then I took a 6-South African JL4 and JR4 guide for angiogram. FINDINGS: * Left main: Long left main, moderate size, it is widely patent. * LAD: LAD in the proximal portion has a widely patent stent, previously deployed in 01/2025 at [place], which was a 2.75 stent. Diagonal 1 at the termination of that stent has about a 60-70% stenosis. The mid and distal LAD has mild to moderate diffuse plaque that is not critical. * Circumflex: Circumflex proximally is patent. It gives off a moderate-sized OM branch. This OM has a stent placed in the past that is widely patent. After the stent, there is a 70% stenosis in the distal OM that is small to moderate in size. * RCA: RCA is a large dominant vessel, proximally is patent with mild diffuse plaquing. The mid RCA has a previously placed stent in 2020 at [facility] and the mid to distal RCA has a 99% ruptured plaque with 100% RPL thrombus with PDA with diffuse disease. INTERVENTION: Over the JR4 guide, Angiomax bolus and drip had been initiated. I brought a 0.014 x 190 cm BMW wire and I crossed into the distal RCA. I took a 2.5 balloon, but it would not cross. Therefore, I decided to remove the balloon and I rewired using a loop technique using a Runthrough wire as there appeared to be difficulty getting any balloon down from that previously deployed stent in 2020. Over that loop technique with the Runthrough wire, I pulled out my BMW and I was able to bring that 2.5 balloon x 12 mm and performed balloon angioplasty up to 14 atmospheres with several inflations. Following this, we restored SARI 3 flow and the stenosis significantly improved. At this point, I tried to bring a 3.5 x 22 stent as well as a 3.5 x 15 stent, but it was not deliverable. Bringing a second wire down, a ChoICE PT extra support, still would not allow me to bring that stent down. I did expect that there may be a shelf plaque in that mid RCA previously placed stent. At this point, I took a GuideLiner device and I safely crossed into the distal RCA with that stent, 3.5 x 15, and I deployed it at 18 atmospheres with 2 separate inflations, each lasting 15 seconds. Then I removed my GuideLiner and I took my Runthrough wire into the RPL, which is a very small branch, probably 1-1.5 mm in size, and wired up into that lesion as there was still some previous thrombus within it distally. At this point, angiogram was performed showing 0% residual stenosis into the stent placed today. All guides and wires were removed. The patient was confused at times, but redirectable throughout the procedure. At this point, a 6-South African AngioSeal was used for closure. 600 mg of p.o. Plavix was administered as well. LVEDP was done using a pigtail and LVEDP was 13 mmHg. CONCLUSION: Successful PTCA and PCI of an acute inferior STEMI and placement of a drug-eluting stent. PLAN: * Dual antiplatelet therapy. * Reeducating the patient as he is extremely noncompliant. He has had multiple MIs in the last couple of years and he is a very high-risk patient in the future for cardiovascular . He needs to start taking his medication properly. Kevon Beaulieu MD CM/CATHY Condition at Discharge: Stable Final Diagnosis/Problems List #Acute Inferior STEMI #Coronary artery disease status post multiple PCI #History of CVA with residual right hemiparesis #Chronic diastolic congestive heart failure (previous echo 2D LVEF 65% on 2023), no exacerbation #Hypertension #Dyslipidemia # lactic acidosis resolved #Diabetes mellitus type 2 #BPH #medicine Noncompliance Discharge Disposition: Hospice - Home Discharge Instruct/Medications Diet: Consistent carbohydrate, Cardiac 2g Na,low cholest Activity: No Restrictions, As Tolerated Follow Up/Referral: Primary care physician in 10 days Follow up at discharge clinic within 2 weeks Follow up with Cardiology in 4 weeks Medications: resume all home medications Scheduled Aspirin (Aspirin Low Strength), 162 MG PO DAILY Aspirin (Aspir-Low), 81 MG PO DAILY Atorvastatin Calcium (Atorvastatin Calcium), 40 MG PO HS Carisoprodol (Soma), 350 MG PO TID, (Reported) Carvedilol (Carvedilol), 3.125 MG PO BID, (Reported) Clopidogrel Bisulfate (Clopidogrel), 1 TAB PO DAILYPRN, (Reported) Clopidogrel Bisulfate (Plavix), 75 MG PO DAILY Cyclobenzaprine Hcl (Cyclobenzaprine Hcl), 10 MG PO Q8HR, (Reported) Empagliflozin (Jardiance), 10 MG PO DAILY, (Reported) Hydrocodone-Acetaminophen (Hydrocodone/Acetaminophen 10-325 mg), Unknown Dose PO PRN, (Reported) Insulin Glargine (Basaglar Kwikpen), 50 UNIT SC DAILY, (Reported) Insulin Regular (Human) (Novolin R), 10 UNIT SC TIDWM, (Reported) Losartan Potassium (Losartan Potassium), 1 TAB PO DAILYPRN, (Reported) Meloxicam (Meloxicam), 7.5 MG PO BID, (Reported) Metformin Hydrochloride (Metformin Hcl), 1 TAB PO BID, (Reported) Rosuvastatin Calcium (Crestor), 1 TAB PO DAILY, (Reported) Sertraline Hcl (Sertraline Hcl), 25 MG PO DAILY, (Reported) Tamsulosin Hcl (Tamsulosin Hcl), 0.4 MG PO QPM, (Reported) Scheduled PRN Hydrocodone-Acetaminophen (Hydrocodone Bitartrate/AC 10-325 mg), 1 TAB PO Q6HP PRN Miscellaneous Medications Morphine Sulfate (Morphine Sulfate Er), 15 MG PO, (Reported) Discontinued Medications Prednisone (Prednisone), 20 MG PO DAILY Valacyclovir Hcl (Valtrex), 1 TAB PO TID Discharge Statement: "Patient was advised to return to the ER or call 911 if any headaches, dizziness, shortness of breath, chest pain, abdominal pain, bleeding, fevers, or worsening of medical condition. Patient was counseled about treatment plan, medications, possible side effects, patientverbalized understanding. All questions were answered to the best of my ability. This discharge took greater then 30 minutes in planning, reviewing documentation, counseling the patient, and discussing with other team members." ASSESSMENT ASSESSMENT Assessment #Acute Inferior STEMI #Coronary artery disease status post multiple PCI Date of Service: Jun 10, 2025 Billing Provider: JUAN FINLEY MD Common Visit Codes: 87361-TJX/OBS DISCH DAY >30min VLADIMIR LAND Jun 10, 2025 13:24 JUAN FINLEY MD Jun 12, 2025 00:10
[2025-06-10 13:30] VITALS: BP 93/59; PULSE 73
[2025-06-10] MEDS ORDERED: CLOP75TA28 PO (15:15)
[2025-06-10] MEDS ORDERED: ASPI-543 PO (15:15)
== END 2025-06-10 14:55 | disposition hospice, home (50) | DRG 322 ==
LOC: EDUNIT# 21:32 → EDBD 21:32 → ER 21:32 → OVERFLOW 23:04 → DOU 23:45 → TELE-CENTR 06-09 23:56
PROVIDERS: ADMIT Student in an Organized Health Care Education/Training Program; ATTEND Student in an Organized Health Care Education/Training Program
PROC: 027034Z Dilation of Coronary Artery, One Artery with Drug-eluting Intraluminal Device, Percutaneous Approach (ICD-10-PCS; principal; 2025-06-08)
PROC: 4A023N7 Measurement of Cardiac Sampling and Pressure, Left Heart, Percutaneous Approach (ICD-10-PCS; 2025-06-08)
PROC: B211YZZ Fluoroscopy of Multiple Coronary Arteries using Other Contrast (ICD-10-PCS; 2025-06-08)
DX: I21.19 ST elevation (STEMI) myocardial infarction involving other coronary artery of inferior wall (principal); E87.20 Acidosis, unspecified; I50.32 Chronic diastolic (congestive) heart failure; I69.351 Hemiplegia and hemiparesis following cerebral infarction affecting right dominant side; Z51.5 Encounter for palliative care; E78.5 Hyperlipidemia, unspecified; E11.9 Type 2 diabetes mellitus without complications; I11.0 Hypertensive heart disease with heart failure; F17.210 Nicotine dependence, cigarettes, uncomplicated; N40.0 Benign prostatic hyperplasia without lower urinary tract symptoms; I25.10 Atherosclerotic heart disease of native coronary artery without angina pectoris; Z79.82 Long term (current) use of aspirin; Z79.899 Other long term (current) drug therapy; Z79.4 Long term (current) use of insulin; Z79.84 Long term (current) use of oral hypoglycemic drugs; Z91.148 Patient's other noncompliance with medication regimen for other reason; Z79.02 Long term (current) use of antithrombotics/antiplatelets
CPT/HCPCS: 36415; 71045; 80053; 80061; 82306; 82607; 82962; 83605; 83735; 83880; 84100; 84443; 84484; 85025; 85610; 85730; 86850; 86900; 86901; 87081; 92941; 93005; 93306; 93458; 99152; 99291; G0378; J1815; J2250; Q9967

== ENCOUNTER 2025-07-25 09:53 | Outpatient (CLI) | payer MEDICAID, OTHER ==
[~2025-07-25 09:53] MED LIST changes: +ASPI-543 PO; +CLOP75TA28 PO; -PRED20TA2 PO; -VALA1TAB PO
[2025-07-25 11:16] LABS: Triglycerides 51 mg/dL (< 150)
[2025-07-25 11:18] LABS: HDL Cholesterol 54 mg/dL (40-59)
[2025-07-25 11:19] LABS: Cholesterol 122 mg/dL (< 200)
== END 2025-07-28 17:00 | disposition home or self-care (01) ==
LOC: LAB 09:53
PROVIDERS: ATTEND Internal Medicine
DX: E11.9 Type 2 diabetes mellitus without complications (principal); E78.5 Hyperlipidemia, unspecified
CPT/HCPCS: 36415; 80061; 83036

== ENCOUNTER → 2025-09-09 | Outpatient (CLI) | payer MEDICAID ==
[2025-09-09 13:37] LABS: Hematocrit 41.7 % (41.0-53.0); Hemoglobin 14.1 g/dL (13.5-17.5); Mean Corpuscular Hemoglobin 29.6 pg (28.0-32.0); Mean Corpuscular Volume 87.6 fL (80.0-100.0); Nucleated Red Blood Cells % 0.0 %
[2025-09-09 13:41] LABS: Urine Protein, UAD Negative (Negative)
[2025-09-09 14:19] LABS: Chloride 106 mmol/L (98-107); Potassium 4.5 mmol/L (3.5-5.1); Sodium 142 mmol/L (136-145)
[2025-09-09 14:20] LABS: Anion Gap 10 (5-15); Calcium 9.8 mg/dL (8.7-10.4); Carbon Dioxide 26 mmol/L (20-31)
[2025-09-09 14:25] LABS: BUN/Creatinine Ratio 15.8 (10.0-20.0); Blood Urea Nitrogen 16 mg/dL (9-23)
[2025-09-09 14:28] LABS: Glucose 140 mg/dL (74-106)
== END | disposition home or self-care (01) ==
LOC: LAB 13:07
PROVIDERS: ATTEND Internal Medicine
DX: E11.21 Type 2 diabetes mellitus with diabetic nephropathy (principal); E78.5 Hyperlipidemia, unspecified; R60.0 Localized edema
CPT/HCPCS: 36415; 80048; 81001; 85025